=== PATIENT | female | born 1935 | race Caucasian/White ===

== ENCOUNTER 2018-08-20 17:41 | Inpatient (IN) ==
--- NOTE | 2018-08-20 18:02 | Emergency Department Note ---
SOB HPI - General Chief Complaint: Shortness of Breath/Dyspnea Stated Complaint: SOB for months Time Seen by Provider: 08/20/18 17:56 Source: patient Mode of arrival: wheelchair - History of Present Illness This patient has had increasing shortness of breath for the last 3 or 4 days but actually had some shortness of breath for about a month. She has no history of chronic lung or heart disease and has had a little edema of her lower extremities. She has a slight chronic cough but no history of COPD. - Related Data Home Medications Medication Instructions Recorded Confirmed apixaban 2.5 mg tablet 2.5 mg PO BID tab 06/13/18 08/20/18 losartan 50 mg tablet 50 mg PO QDAY 06/13/18 08/20/18 metoprolol succinate ER 50 mg 25 mg PO QDAY each 06/13/18 08/20/18 capsule sprinkle, ext. release 24 hr potassium chloride ER 20 mEq 20 meq PO BID 06/13/18 08/20/18 tablet,extended release Hydrochlorothiazide [Oretic] 25 mg PO DAILY 08/20/18 08/20/18 Memantine [Namenda] 10 mg PO BID 08/20/18 08/20/18 Allergies Allergy/AdvReac Type Severity Reaction Status Date / Time No Known Drug Allergies Allergy Unverified 08/20/18 17:49 Review of Systems All systems ED: reviewed and negative except as stated. Past Medical History - Past Medical History Medical history: Reports: CVA, hypertension - Social History smoking status: Never smoker Physical Exam Limitations: no limitations General appearance: alert Head: atraumatic Eye: Present: normal appearance ENT: normal exam Neck: Present: normal inspection Chest: Present: normal inspection Respiratory: Present: normal lung sounds bilaterally Cardiovascular: Present: tachycardia, irregular rhythm, normal heart sounds Abdominal: Present: soft. Absent: distention, tenderness Extremities: Present: pedal edema, pretibial edema Neurological: Present: alert Psychiatric: Present: normal affect Skin: Present: warm, dry Course Vital Signs Temperature 97.1 F 08/20/18 17:43 Pulse Rate 123 H 08/20/18 17:43 Respiratory Rate 20 08/20/18 17:43 Blood Pressure 136/83 08/20/18 17:43 Pulse Oximetry (%) 98 08/20/18 17:43 Temperature 97.1 F 08/20/18 17:43 Pulse Rate 106 H 08/20/18 19:16 Respiratory Rate 28 H 08/20/18 19:34 Blood Pressure 117/74 08/20/18 19:16 Pulse Oximetry (%) 92 08/20/18 19:16 Shortness of Breath/Dyspnea - [facility] Narrative Medical decision making narrative: Chest x-ray is consistent with mild heart failure BNP was 5000. It was negative. We gave her diltiazem and her rate came down to about 90. Also started Lasix at 20 mg IV. She will be admitted to the hospital by Dr. Dietrich. - Lab Data Lab results reviewed: Yes I reviewed the patient's lab results. Result diagrams: 08/20/18 18:05 08/20/18 18:05 Lab Results 08/20/18 08/20/18 08/20/18 Range/Units 18:05 18:05 18:05 WBC 7.3 (4.5-11.0) K/mcL RBC 4.21 (4.00-5.20) M/mcL Hgb 13.3 (12.0-15.0) g/dL Hct 41.6 (36.0-48.0) % MCV 99.0 (80.0-100.0) fL MCH 31.7 (26.0-34.0) pg MCHC 32.0 (31.0-36.0) g/dL RDW 17.7 H (11.5-14.5) % Plt Count 183 (140-440) K/mcL MPV 9.5 (7.4-10.4) fL Gran % 74.0 (38.0-78.0) % Lymph % (Auto) 15.4 L (15.5-49.0) % Lamb % (Auto) 9.2 (1.0-12.0) % Eos % (Auto) 1.1 (0.0-7.0) % Baso % (Auto) 0.3 (0.0-2.0) % Gran # 5.4 (1.8-8.0) K/mcL Lymph # (Auto) 1.1 L (1.5-4.8) K/mcL Lamb # (Auto) 0.7 (0.1-0.9) K/mcL Eos # (Auto) 0.1 (0.0-0.7) K/mcL Baso # (Auto) 0 (0.0-0.3) K/mcL Sodium 137 (133-145) mmol/L Potassium 3.6 (3.3-5.1) mmol/L Chloride 103 (96-108) mmol/L Carbon Dioxide 19 L (22-30) mmol/L Anion Gap 15.0 (8-16) BUN 20 (8-23) mg/dl Creatinine 1.2 H (0.6-1.1) mg/dl GFR Calculation 43 Glucose 134 H (70-105) mg/dL Calcium 8.6 (8.6-10.4) mg/dl Total Bilirubin 0.4 (0.0-1.0) mg/dL AST 19 (0-37) U/l ALT 24 (0-40) U/l Alkaline Phosphatase 98 (39-117) U/L Troponin T < 0.01 (0-0.03) ng/ml NT-Pro-B Natriuret Pep 5694.0 H (0-450) pg/ml Total Protein 7.3 (5.9-8.4) gm/dL Albumin 3.3 (3.2-5.2) gm/dL Globulin 4.0 H (2.2-3.7) gm/dL Albumin/Globulin Ratio 0.8 L (1.0-2.3) - Radiology Data Radiology results reviewed: Yes I reviewed the patient's radiology results. Disposition Pt seen by [facility]OL[facility]ACHINE/PA only: No Clinical Impression: Congestive heart failure, Atrial fibrillation Disposition: Xfer As Inpt ([facility]) Condition: Good Referrals: Seun Marsh DO [Primary Care Provider] - Time of Disposition: 19:41
[2018-08-20] MEDS ORDERED: DILTIAZEM 25 MG/5 ML VIAL IV ONE (18:18)
[2018-08-20] MEDS ORDERED: DILTIAZEM 125 MG in DEXTROSE 5% IN WATER 100 ML IV SCH (18:30)
[2018-08-20 18:50] LABS: Basophils # (Auto) 0 K/mcL (0.0-0.3); Basophils % (Auto) 0.3 % (0.0-2.0); Eosinophils # (Auto) 0.1 K/mcL (0.0-0.7); Eosinophils % (Auto) 1.1 % (0.0-7.0); Lymphocytes # (Auto) 1.1 K/mcL (1.5-4.8); Lymphocytes % (Auto) 15.4 % (15.5-49.0); Monocytes # (Auto) 0.7 K/mcL (0.1-0.9); Monocytes % (Auto) 9.2 % (1.0-12.0); Platelet Count 183 K/mcL (140-440); RBC 4.21 M/mcL (4.00-5.20); Red Cell Distribution Width 17.7 % (11.5-14.5)
[2018-08-20 19:11] LABS: ALT/SGPT 24 U/l (0-40); Albumin 3.3 gm/dL (3.2-5.2); Albumin/Globulin Ratio 0.8 (1.0-2.3); Alkaline Phosphatase 98 U/L (39-117); Blood Urea Nitrogen 20 mg/dl (8-23)
[2018-08-20] MEDS ORDERED: FUROSEMIDE 20 MG/2 ML VIAL IV ONE ×2 (19:32→21:21)
--- NOTE | 2018-08-20 19:42 | XRay Report ---
CLINICAL INFORMATION: sob COMPARISON: None. FINDINGS: The heart is mildly enlarged. Tortuous thoracic aorta is appreciated. Mediastinum is otherwise normal. The pulmonary vessels are mildly distended and there is minimal bronchovascular edema centrally. Small pleural effusions noted. There is minor bibasilar atelectasis. IMPRESSION: Mild CHF Interpreted and Authenticated by: Todd Holm 08/20/18
[2018-08-20] MEDS ORDERED: METOPROLOL TARTRATE 5 MG/5 ML VIAL IV ONE (20:28)
--- NOTE | 2018-08-20 20:56 | Internal Med History&Physical ---
Medical - H&P: [facility] Patient information: Note initiated : 08/20/18 at 8:53 pm Service Date, if different from initiated Date: [] Patient: Kimmie Pretty 82 y/o F admitted on for SOB for months. Chief Complaint: [] History of present illness: Ms. Pretty is a 82 year old F Presents to the ED with progressive shortness of breath, especially with any exertion. She states that she is bad noticeable shortness of breath over the past couple months but especially worse of the past 3 or 4 days. She is also noticed pedal edema more on the right foot the past few days as well. She has a mild chronic cough but no acute worsening. She has been sleeping in a recliner over the past week because of shortness of b reath, positive for orthopnea at night. When she gets up and exerts herself and gets short of breath she does get lightheaded. In the ED she was found to be in A. fib RVR with rates almost 130, she was given diltiazem which brought her heart rate down to the 90s. Chest x-ray revealed pulmonary edema. She had elevated BNP. Denies any chest pain, denies any recent illnesses. Denies any fevers or chills. Does not weigh herself daily. Review of Systems: Pertinent positives as above. Denies headache/fever/chills/nausea/vomiting/chest or abdominal pain/diarrhea. 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 release 24 hr potassium chloride ER 20 mEq 20 meq PO BID 06/13/18 08/20/18 History tablet,extended release Hydrochlorothiazide [Oretic] 25 mg PO DAILY 08/20/18 08/20/18 History Memantine [Namenda] 10 mg PO BID 08/20/18 08/20/18 History Allergies Allergy/AdvReac Type Severity Reaction Status Date / Time No Known Drug Allergies Allergy Unverified 08/20/18 17:49 Medical - H&P: Exam - Constitutional Vitals: Temp Pulse Resp BP Pulse Ox 97.1 F 98 H 21 115/88 95 08/20/18 17:43 08/20/18 20:10 08/20/18 20:10 08/20/18 20:10 08/20/18 20:10 Exam: General: Alert, Awake, No acute Distress Eyes/N/T: EOMI, PEERL, Head/Neck: neck supple, normocephalic atraumatic CV: RRR, No murmurs, normal s1/s2 Pulm: Clear b/l, no wheezing/rhonchi/rales Abd: soft, nontender, +BS x4 Ext: no clubbing/cyanosis, pedal edema more so on the right 2+ Neuro: Alert, no focal deficits, moves all extremities, CN 2-12 grossly intact, symmetrical strength b/l upper/lower, sensations intact b/l upper/lower Skin: warm/dry Medical - H&P: Reslt - Labs CBC & Chem 7: 08/20/18 18:05 08/20/18 18:05 Labs: Short CBC 08/20/18 Range/Units 18:05 WBC 7.3 (4.5-11.0) K/mcL Hgb 13.3 (12.0-15.0) g/dL Hct 41.6 (36.0-48.0) % Plt Count 183 (140-440) K/mcL BMP 08/20/18 18:05 Sodium 137 Potassium 3.6 Chloride 103 Carbon Dioxide 19 L BUN 20 Creatinine 1.2 H Glucose 134 H Calcium 8.6 Cardiac Enzymes 08/20/18 Range/Units 18:05 Troponin T < 0.01 (0-0.03) ng/ml Liver Function 08/20/18 Range/Units 18:05 Total Bilirubin 0.4 (0.0-1.0) mg/dL AST 19 (0-37) U/l ALT 24 (0-40) U/l Alkaline Phosphatase 98 (39-117) U/L Albumin 3.3 (3.2-5.2) gm/dL - Impressions Chest x-ray pulmonary edema Echocardiogram August 2017 showed an EF of 50% with some diastolic dysfunction Medical - H&P: A/P - Narrative A/P Narrative: A: *Afib RVR: -Is on Eliquis and metoprolol at home -trop neg *Acute on chronic diastolic CHF: *Pulmonary edema: *Dyspnea: Secondary to above *HTN: On losartan and metoprolol succinate at home, and hydrochlorothiazide *Dementia: Recently started on Namenda * P: -IV Lasix -Monitor weights and urine output -echo pending -Continue Eliquis and beta-elizabeth -Wean off diltiazem drip -Check magnesium level and TSH -Urinalysis pending - -f/u with cardio outpt -PT/OT -ppx: Eliquis
[2018-08-20 21:02] LABS: Appearance,Urine HAZY; Bacteria,Urine MANY /hpf (0); Bilirubin,Urine NEG (NEG); Color,Urine YELLOW; Glucose,Urine (UA) NEGATIVE (NEG); Leukocyte Esterase,Urine 500 /uL (NEG); Mucus,Urine FEW /hpf (0); Protein,Urine 30 mg/dL (NEG); Specific Gravity,Urine 1.017 (1.000-1.035); Urine Blood 0.03 mg/dL (<0.03); Urine Hyaline Cast 8 /lpf (0-2); Urine RBC 3 /hpf (0-1); Urine Squamous Epithelial Cell 1 /hpf (0-4); Urine WBC > 182 /hpf (0-4); Urobilinogen,Urine NEG (NEG)
[2018-08-20] MEDS ORDERED: POTASSIUM CHLORIDE 40 MEQ in DEXTROSE 5% IN WATER 500 ML IV PRN (21:21)
[2018-08-20] MEDS ORDERED: POTASSIUM CHLORIDE 20 MEQ TABLET PO PRN ×2 (21:21)
[2018-08-20] MEDS ORDERED: MAGNESIUM SULFATE 2 GM/50 ML BAG IV PRN (21:21)
[2018-08-20] MEDS ORDERED: POLYETHYLENE GLYCOL 3350 17 GM PACKET PO PRN (21:21)
[2018-08-20] MEDS ORDERED: ONDANSETRON 4 MG/2 ML VIAL IV PRN (21:21)
[2018-08-20] MEDS ORDERED: SENNOSIDES 1 TABLET PO PRN (21:21)
[2018-08-20] MEDS: POTASSIUM CHLORIDE 20 MEQ TABLET PO SCH ×2 (22:13→22:15)
[2018-08-20] MEDS: FAMOTIDINE 20 MG TABLET PO SCH (22:13)
[2018-08-20] MEDS: APIXABAN 2.5 MG TABLET PO SCH (22:14)
[2018-08-20] MEDS: cefTRIAXone 1 GM VIAL IV SCH (22:14)
[2018-08-20] MEDS: DOCUSATE SODIUM 100 MG CAPSULE PO SCH (22:14)
[2018-08-20] MEDS: 0.9 % SODIUM CHLORIDE 10 ML SYRINGE IV SCH (22:14)
[2018-08-20] MEDS: MEMANTINE 10 MG TABLET PO SCH (22:14)
[2018-08-21] MEDS: 0.9 % SODIUM CHLORIDE 10 ML SYRINGE IV SCH ×6 (05:24→20:50)
[2018-08-21] MEDS: IPRATROPIUM/ALBUTEROL 3 ML AMPUL.NEB NEB PRN (05:52)
[2018-08-21 06:15] LABS: Basophils # (Auto) 0 K/mcL (0.0-0.3); Basophils % (Auto) 0.2 % (0.0-2.0); Eosinophils # (Auto) 0 K/mcL (0.0-0.7); Eosinophils % (Auto) 0.5 % (0.0-7.0); Granulocytes % (Auto) 77.4 % (38.0-78.0); Lymphocytes % (Auto) 14.1 % (15.5-49.0); Mean Cell Volume 99.8 fL (80.0-100.0); Mean Corpuscular HGB Conc 31.5 g/dL (31.0-36.0); Monocytes # (Auto) 0.6 K/mcL (0.1-0.9); Monocytes % (Auto) 7.8 % (1.0-12.0); Platelet Count 179 K/mcL (140-440); RBC 4.15 M/mcL (4.00-5.20); Red Cell Distribution Width 17.7 % (11.5-14.5)
[2018-08-21 06:30] LABS: ALT/SGPT 23 U/l (0-40); Albumin/Globulin Ratio 0.7 (1.0-2.3); Alkaline Phosphatase 99 U/L (39-117); Bilirubin,Direct < 0.2 mg/dL (0.0-0.3); Blood Urea Nitrogen 22 mg/dl (8-23); Gamma Glutamyl Transpeptidase 74 U/L (5-36); Uric Acid 8.3 mg/dL (2.5-8.0)
--- NOTE | 2018-08-21 07:14 | Internal Med Progress Note ---
Medical - PN: Subj Patient information: Note initiated : 08/21/18 at 7:13 am Service Date, if different from initiated Date: [] Patient: Kimmie Pretty 82 y/o F admitted on 08/20/18 for SOB for months. Chief Complaint: [] Interval history: Ms. Pretty is a 82 year old F Presents to the ED with progressive shortness of breath, especially with any exertion. She states that she is bad noticeable shortness of breath over the past couple months but especially worse of the past 3 or 4 days. She is also noticed pedal edema more on the right foot the past few days as well. She has a mild chronic cough but no acute worsening. She has been sleeping in a recliner over the past week because of shortness of breath, positive for orthopnea at night. When she gets up and exerts herself and gets short of breath she does get lightheaded. In the ED she was found to be in A. fib RVR with rates almost 130, she was given diltiazem which brought her heart rate down to the 90s. Chest x-ray revealed pulmonary edema. She had elevated BNP. Denies any chest pain, denies any recent illnesses. Denies any fevers or chills. Does not weigh herself daily. 08/21 Was able to get decent sleep last night. Good urine output overnight. She feels her shortness of breath is improving. Diltiazem drip at 5. She is taken off of supplemental oxygen this morning. Occasional cough. Review of Systems: denies headache/fever/chills/nausea/vomiting/chest or abdominal pain/diarrhea. Otherwise see above. - Constitutional Vitals: Vital Signs Temp Pulse Resp BP Pulse Ox 98.0 F 92 H 21 134/101 97 08/21/18 07:02 08/21/18 06:31 08/21/18 07:02 08/21/18 07:02 08/21/18 07:02 Period Temp Pulse Resp BP Sys/Stuart Pulse Ox Last 24 Hr 97.1 F-98.4 F 78-150 14-34 106-149/65-107 90-99 Intake and Output 08/20/18 08/21/18 08/21/18 21:59 05:59 13:59 Intake Total 12 0 Output Total 950 980 100 Balance -938 -980 -100 Weight 71.985 kg Intake & Output: Intake & Output 08/20/18 08/21/18 08/21/18 21:59 05:59 13:59 Intake Total 12 0 Output Total 950 980 100 Balance -938 -980 -100 Weight 71.985 kg Intake: IV 12 0 Cardizem 125 mg In Dextrose 5% 12 in Water 100 ml @ 5 MG/HR 5 mls /hr IV Q12H [facility] Rx#:[id number] Output: Urine Catheter Amount 950 980 100 Other: Urine Appearance Clear Clear Clear Uretheral (Fuentes) Clear Urine Color Bright Yellow Bright Yellow Bright Yellow Uretheral (Fuentes) Pale Exam: General: Alert, Awake, No acute Distress Eyes/N/T: EOMI, Head/Neck: neck supple, CV: RRR, No murmurs, Pulm: Clear b/l, no wheezing/rhonchi/rales Abd: soft, nontender, +BS x4 Ext: no clubbing/cyanosis, pedal edema more so on the right 1-2+ Neuro: Alert, no focal deficits, moves all extremities, Skin: warm/dry Medical - PN: Obj Da - Labs CBC & Chem 7: 08/21/18 03:55 08/21/18 03:55 Labs: Abnormal Lab Results 08/21/18 08/21/18 08/20/18 03:55 03:55 20:10 RDW 17.7 H Lymph % (Auto) 14.1 L Lymph # (Auto) 1.0 L Carbon Dioxide Creatinine 1.4 H Glucose 134 H Uric Acid 8.3 H GGT 74 H Lactate Dehydrogenase 255 H NT-Pro-B Natriuret Pep Albumin 3.0 L Globulin 4.3 H Albumin/Globulin Ratio 0.7 L TSH Urine Protein 30 A Urine Occult Blood 0.03 A Urine Nitrate Pos A Ur Leukocyte Esterase 500 A Urine RBC 3 H Urine WBC > 182 H Urine Bacteria Many A Hyaline Casts 8 H 08/20/18 08/20/18 08/20/18 18:15 18:05 18:05 RDW 17.7 H Lymph % (Auto) 15.4 L Lymph # (Auto) 1.1 L Carbon Dioxide 19 L Creatinine 1.2 H Glucose 134 H Uric Acid GGT Lactate Dehydrogenase NT-Pro-B Natriuret Pep 5694.0 H Albumin Globulin 4.0 H Albumin/Globulin Ratio 0.8 L TSH 5.33 H Urine Protein Urine Occult Blood Urine Nitrate Ur Leukocyte Esterase Urine RBC Urine WBC Urine Bacteria Hyaline Casts Meds: Medications Acetaminophen (Tylenol) 650 mg PO Q6HP PRN PRN Reason: PAIN/FEVER > 101 Albuterol/Ipratropium (Duoneb) 3 ml NEB Q4HP PRN PRN Reason: Shortness Of Breath Last Admin: 08/21/18 05:52 Dose: 3 ml Documented by: Apixaban (Eliquis) 2.5 mg PO BID [facility] Last Admin: 08/20/18 22:14 Dose: 2.5 mg Documented by: Ceftriaxone Sodium (Rocephin) 1 gm IV DAILY [facility]; Protocol Last Admin: 08/20/18 22:14 Dose: 1 gm Documented by: Docusate Sodium (Colace) 100 mg PO BID [facility] Last Admin: 08/20/18 22:14 Dose: 100 mg Documented by: Famotidine (Pepcid) 20 mg PO HS [facility] Last Admin: 08/20/18 22:13 Dose: 20 mg Documented by: Furosemide (Lasix) 40 mg IV DAILY [facility] Stop: 08/21/18 09:01 Hydrochlorothiazide (Oretic) 25 mg PO DAILY [facility] Diltiazem HCl 125 mg/ Dextrose 125 mls @ 5 mls/hr IV Q12H [facility]; Protocol Potassium Chloride 40 meq/ (Dextrose) 520 mls @ 130 mls/hr IV UD PRN PRN Reason: Potassium < 3 Magnesium Sulfate (Magnesium Sulfate) 2 gm in 50 mls @ 50 mls/hr IV UD PRN PRN Reason: Magnesium </= 1.6 Memantine (Namenda) 10 mg PO BID [facility] Last Admin: 08/20/18 22:14 Dose: 10 mg Documented by: Metoprolol Succinate (Toprol Xl) 25 mg PO DAILY [facility] Metoprolol Tartrate (Lopressor) 5 mg IV Q2HP PRN PRN Reason: Tachyarrhythmias HR>110 Ondansetron HCl (Zofran) 4 mg IV Q4HP PRN PRN Reason: Nausea And Vomiting Polyethylene Glycol (Miralax) 17 gm PO DAILYP PRN PRN Reason: Constipation [facility] Last Admin: 08/20/18 22:15 Dose: Not Given Documented by: Potassium Chloride (Kdur) 40 meq PO UD PRN PRN Reason: Potssium is 3-3.5 Potassium Chloride (Kdur) 40 meq PO UD PRN PRN Reason: Potassium < 3 Senna (Senokot) 2 tab PO HSP PRN PRN Reason: Constipation Sodium Chloride (Saline Flush) 10 ml IV Q8 [facility] Last Admin: 08/21/18 05:24 Dose: 10 ml Documented by: Medical - PN: A/P - Time Spent With Patient Total time spent is greater than 50% in coordination of care (as documented) at patient's floor/unit and/or counseling patient: - Narrative A/P Narrative: A: *Afib RVR: -Is on Eliquis and metoprolol at home -trop neg *Acute on chronic diastolic CHF: -Good urine output overnight. *Pulmonary edema w/hypoxia: -on room air this morning *Dyspnea: Secondary to above *HTN: On losartan and metoprolol succinate at home, and hydrochlorothiazide *Dementia: Recently started on Namenda *UTI: P: -IV Lasix to PO -Monitor weights and urine output -echo pending -Continue Eliquis and beta-elizabeth -Wean off diltiazem drip -rocephin, pending UC - -f/u with cardio outpt -PT/OT -ppx: Eliquis Medical - PN: Qual - VTE Deep Vein Thrombosis/Pulmonary Embolism Present on Admission: No
[2018-08-21] MEDS: METOPROLOL TARTRATE 5 MG/5 ML VIAL IV PRN ×2 (07:36→16:55)
[2018-08-21] MEDS: FUROSEMIDE 40 MG TABLET PO SCH (08:19)
[2018-08-21] MEDS: HYDROCHLOROTHIAZIDE 25 MG TABLET PO SCH (08:23)
[2018-08-21] MEDS: POTASSIUM CHLORIDE 20 MEQ TABLET PO SCH ×2 (08:23→16:56)
[2018-08-21] MEDS: DOCUSATE SODIUM 100 MG CAPSULE PO SCH ×2 (08:24→20:49)
[2018-08-21] MEDS: APIXABAN 2.5 MG TABLET PO SCH ×2 (08:28→20:49)
[2018-08-21] MEDS: MEMANTINE 10 MG TABLET PO SCH ×2 (08:28→20:49)
[2018-08-21] MEDS ORDERED: FUROSEMIDE 40 MG/4 ML VIAL IV SCH (09:00)
[2018-08-21] MEDS ORDERED: METOPROLOL SUCCINATE 25 MG TAB.XL.24H PO SCH (09:00)
[2018-08-21] MEDS: DILTIAZEM 125 MG in DEXTROSE 5% IN WATER 100 ML IV SCH ×2 (10:46→19:39)
[2018-08-21] MEDS: ACETAMINOPHEN 325 MG TABLET PO PRN ×2 (11:50→16:58)
[2018-08-21] MEDS: cefTRIAXone 1 GM VIAL IV SCH (14:37)
[2018-08-21] MEDS ORDERED: METOPROLOL SUCCINATE 25 MG TAB.XL.24H PO ONE (18:33)
[2018-08-21] MEDS ORDERED: 0.9 % SODIUM CHLORIDE 1,000 ML IV SCH (20:00)
[2018-08-21] MEDS: FAMOTIDINE 20 MG TABLET PO SCH (20:49)
[2018-08-22] MEDS: METOPROLOL TARTRATE 5 MG/5 ML VIAL IV PRN ×3 (02:05→23:14)
[2018-08-22] MEDS: ACETAMINOPHEN 325 MG TABLET PO PRN ×2 (04:21→19:55)
[2018-08-22 05:48] LABS: Blood Urea Nitrogen 28 mg/dl (8-23)
[2018-08-22] MEDS: 0.9 % SODIUM CHLORIDE 10 ML SYRINGE IV SCH ×3 (05:55→23:39)
--- NOTE | 2018-08-22 06:25 | XRay Report ---
CLINICAL INFORMATION: f/u chf COMPARISON: 08/20/2018 FINDINGS: Moderate cardiomegaly is unchanged. Mediastinum is unremarkable. Pulmonary vessels have returned to normal in caliber. There is no edema. Left basilar atelectasis has resolved. Small vague infiltrate or atelectasis is developing in the right base. No effusions IMPRESSION: Interval resolution CHF. Possible developing right basilar infiltrate Interpreted and Authenticated by: Todd Holm 08/22/18
[2018-08-22] MEDS: DILTIAZEM 125 MG in DEXTROSE 5% IN WATER 100 ML IV SCH (07:03)
[2018-08-22] MEDS: DOCUSATE SODIUM 100 MG CAPSULE PO SCH ×2 (08:01→20:23)
[2018-08-22] MEDS: MEMANTINE 10 MG TABLET PO SCH ×2 (08:01→20:23)
[2018-08-22] MEDS: FUROSEMIDE 40 MG TABLET PO SCH (08:01)
[2018-08-22] MEDS: APIXABAN 2.5 MG TABLET PO SCH ×2 (08:01→20:23)
[2018-08-22] MEDS: cefTRIAXone 1 GM VIAL IV SCH (08:01)
[2018-08-22] MEDS: HYDROCHLOROTHIAZIDE 25 MG TABLET PO SCH (08:01)
[2018-08-22] MEDS: POTASSIUM CHLORIDE 20 MEQ TABLET PO SCH ×2 (08:01→18:21)
[2018-08-22] MEDS: METOPROLOL SUCCINATE 50 MG TAB.XL.24H PO SCH (08:01)
--- NOTE | 2018-08-22 08:43 | XRay Report ---
CLINICAL INFORMATION: r/o CHF COMPARISON: 08/22/2018 FINDINGS: Moderate cardiomegaly is unchanged. Mediastinum and pulmonary vessels are normal. Moderate patchy bibasilar infiltrates or subsegmental atelectasis have progressed. Small left pleural effusion noted IMPRESSION: No CHF. Moderate stable cardiomegaly. Moderate patchy bibasilar atelectasis or infiltrates - progressing. Consider aspiration Interpreted and Authenticated by: Todd Holm 08/22/18
[2018-08-22] MEDS ORDERED: DILTIAZEM 125 MG in DEXTROSE 5% IN WATER 100 ML IV PRN (09:15)
--- NOTE | 2018-08-22 10:05 | Internal Med Progress Note ---
Medical - PN: Subj Patient information: Note initiated : 08/22/18 at 10:02 am Service Date, if different from initiated Date: [] Patient: Kimmie Pretty 82 y/o F admitted on 08/20/18 for SOB for months. Chief Complaint: [] Interval history: Ms. Pretty is a 82 year old F Presents to the ED with progressive shortness of breath, especially with any exertion. She states that she is bad noticeable shortness of breath over the past couple months but especially worse of the past 3 or 4 days. She is also noticed pedal edema more on the right foot the past few days as well. She has a mild chronic cough but no acute worsening. She has been sleeping in a recliner over the past week because of shortness of breath, positive for orthopnea at night. When she gets up and exerts herself and gets short of breath she does get lightheaded. In the ED she was found to be in A. fib RVR with rates almost 130, she was given diltiazem which brought her heart rate down to the 90s. Chest x-ray revealed pulmonary edema. She had elevated BNP. Denies any chest pain, denies any recent illnesses. Denies any fevers or chills. Does not weigh herself daily. 08/21 Was able to get decent sleep last night. Good urine output overnight. She feels her shortness of breath is improving. Diltiazem drip at 5. She is taken off of supplemental oxygen this morning. Occasional cough. /9-patient feeling more short of breath. No concerns per staff with heart rate variable between 80-120. Off diltiazem drip. Echocardiogram EF 25%. Case discussed with patient's son and patient and the need for follow-up with cardi ology. Increase metoprolol to 50 extended release. X-ray chest shows interval resolution of CHF however bibasilar atelectasis/infiltrates likely aspiration. Start ST eval - Constitutional Vitals: Vital Signs Temp Pulse Resp BP Pulse Ox 97.9 F 129 H 27 H 106/82 92 08/22/18 04:01 08/22/18 09:01 08/22/18 09:01 08/22/18 09:01 08/22/18 09:01 Period Temp Pulse Resp BP Sys/Stuart Pulse Ox Last 24 Hr 97.1 F-98.3 F 33-129 0-35 101-143/70-119 78-97 Intake and Output 08/21/18 08/22/18 08/22/18 21:59 05:59 13:59 Intake Total 720 720 570 Output Total 275 296 95 Balance 445 424 475 Weight 160 lb 11.2 oz Intake & Output: Intake & Output 08/21/18 08/22/18 08/22/18 21:59 05:59 13:59 Intake Total 720 720 570 Output Total 275 296 95 Balance 445 424 475 Weight 160 lb 11.2 oz Intake: Oral 720 720 570 Output: Urine Catheter Amount 275 296 95 Other: Meal Dinner Breakfast Percent of Meal Consumed 75% 25% Feeding Ability Total Assistance Urine Appearance Clear Clear Clear Uretheral (Fuentes) Clear Clear Urine Color Straw Straw Dark Yellow Uretheral (Ufentes) Dark Yellow Urine Odor Normal # Bowel Movements 1 Medical - PN: Obj Da - Labs CBC & Chem 7: 08/21/18 03:55 08/22/18 03:44 Labs: Abnormal Lab Results 08/22/18 08/21/18 08/21/18 03:44 03:55 03:55 RDW 17.7 H Lymph % (Auto) 14.1 L Lymph # (Auto) 1.0 L Carbon Dioxide 19 L BUN 28 H Creatinine 1.5 H 1.4 H Glucose 124 H 134 H Uric Acid 8.3 H Calcium 8.4 L GGT 74 H Lactate Dehydrogenase 255 H NT-Pro-B Natriuret Pep Albumin 3.0 L Globulin 4.3 H Albumin/Globulin Ratio 0.7 L TSH Urine Protein Urine Occult Blood Urine Nitrate Ur Leukocyte Esterase Urine RBC Urine WBC Urine Bacteria Hyaline Casts 08/20/18 08/20/18 08/20/18 20:10 18:15 18:05 RDW Lymph % (Auto) Lymph # (Auto) Carbon Dioxide 19 L BUN Creatinine 1.2 H Glucose 134 H Uric Acid Calcium GGT Lactate Dehydrogenase NT-Pro-B Natriuret Pep 5694.0 H Albumin Globulin 4.0 H Albumin/Globulin Ratio 0.8 L TSH 5.33 H Urine Protein 30 A Urine Occult Blood 0.03 A Urine Nitrate Pos A Ur Leukocyte Esterase 500 A Urine RBC 3 H Urine WBC > 182 H Urine Bacteria Many A Hyaline Casts 8 H 08/20/18 18:05 RDW 17.7 H Lymph % (Auto) 15.4 L Lymph # (Auto) 1.1 L Carbon Dioxide BUN Creatinine Glucose Uric Acid Calcium GGT Lactate Dehydrogenase NT-Pro-B Natriuret Pep Albumin Globulin Albumin/Globulin Ratio TSH Urine Protein Urine Occult Blood Urine Nitrate Ur Leukocyte Esterase Urine RBC Urine WBC Urine Bacteria Hyaline Casts Meds: Medications Acetaminophen (Tylenol) 650 mg PO Q6HP PRN PRN Reason: PAIN/FEVER > 101 Last Admin: 08/22/18 04:21 Dose: 650 mg Documented by: Albuterol/Ipratropium (Duoneb) 3 ml NEB Q4HP PRN PRN Reason: Shortness Of Breath Last Admin: 08/21/18 05:52 Dose: 3 ml Documented by: Apixaban (Eliquis) 2.5 mg PO BID [facility] Last Admin: 08/22/18 08:01 Dose: 2.5 mg Documented by: Ceftriaxone Sodium (Rocephin) 1 gm IV DAILY [facility]; Protocol Last Admin: 08/22/18 08:01 Dose: 1 gm Documented by: Docusate Sodium (Colace) 100 mg PO BID [facility] Last Admin: 08/22/18 08:01 Dose: 100 mg Documented by: Famotidine (Pepcid) 20 mg PO HS [facility] Last Admin: 08/21/18 20:49 Dose: 20 mg Documented by: Furosemide (Lasix) 40 mg PO DAILY [facility] Last Admin: 08/22/18 08:01 Dose: 40 mg Documented by: Hydrochlorothiazide (Oretic) 25 mg PO DAILY [facility] Last Admin: 08/22/18 08:01 Dose: 25 mg Documented by: Potassium Chloride 40 meq/ (Dextrose) 520 mls @ 130 mls/hr IV UD PRN PRN Reason: Potassium < 3 Magnesium Sulfate (Magnesium Sulfate) 2 gm in 50 mls @ 50 mls/hr IV UD PRN PRN Reason: Magnesium </= 1.6 Sodium Chloride (Sodium Chloride 0.9%) 1,000 mls @ 50 mls/hr IV .Q20H [facility] Stop: 08/22/18 15:59 Last Admin: 08/21/18 20:00 Dose: 50 mls/hr Documented by: Diltiazem HCl 125 mg/ Dextrose 125 mls @ 5 mls/hr IV Q12HP PRN; Protocol PRN Reason: Tachyarrhythmias Memantine (Namenda) 10 mg PO BID [facility] Last Admin: 08/22/18 08:01 Dose: 10 mg Documented by: Metoprolol Succinate (Toprol Xl) 50 mg PO DAILY [facility] Last Admin: 08/22/18 08:01 Dose: 50 mg Documented by: Metoprolol Tartrate (Lopressor) 5 mg IV Q2HP PRN PRN Reason: Tachyarrhythmias HR>110 Last Admin: 08/22/18 04:20 Dose: 5 mg Documented by: Ondansetron HCl (Zofran) 4 mg IV Q4HP PRN PRN Reason: Nausea And Vomiting Polyethylene Glycol (Miralax) 17 gm PO DAILYP PRN PRN Reason: Constipation Potassium Chloride (Kdur) 20 meq PO BIDCC [facility] Last Admin: 08/22/18 08:01 Dose: 20 meq Documented by: Potassium Chloride (Kdur) 40 meq PO UD PRN PRN Reason: Potssium is 3-3.5 Potassium Chloride (Kdur) 40 meq PO UD PRN PRN Reason: Potassium < 3 Senna (Senokot) 2 tab PO HSP PRN PRN Reason: Constipation Sodium Chloride (Saline Flush) 10 ml IV Q8 [facility] Last Admin: 08/22/18 05:55 Dose: 10 ml Documented by: Medical - PN: A/P - Time Spent With Patient Total time spent is greater than 50% in coordination of care (as documented) at patient's floor/unit and/or counseling patient: 25 - 35 minutes (1) Acute decompensated heart failure Status: Acute Assessment and plan: * Acute decompensated heart failure systolic with EF 25%-clinically improving. Improved pulmonary edema * A. fib with RVR-clinically improved off diltiazem drip. Continue metoprolol at higher doses * Aspiration pneumonia-ST eval/aspiration precaution. No indication for antibiotics at this time * Hypoxic respiratory failure secondary to combination of above-clinically improved * History of dementia on memantine * Anticoagulation on Apixiban * UTI on Rocephin, await cultures * Full code Plan * ST eval/aspiration precautions * Continue rate control measures * Antibiotic coverage * PT OT * Possible discharge in 24-48 hours if clinically improved Current Visit: Yes Medical - PN: Qual - VTE Deep Vein Thrombosis/Pulmonary Embolism Present on Admission: No
[2018-08-22] MEDS: FAMOTIDINE 20 MG TABLET PO SCH (20:23)
[2018-08-23] MEDS: IPRATROPIUM/ALBUTEROL 3 ML AMPUL.NEB NEB PRN (01:20)
[2018-08-23] MEDS: METOPROLOL TARTRATE 5 MG/5 ML VIAL IV PRN ×3 (02:24→20:18)
[2018-08-23] MEDS: 0.9 % SODIUM CHLORIDE 10 ML SYRINGE IV SCH ×3 (05:28→20:18)
[2018-08-23] MEDS: FUROSEMIDE 40 MG TABLET PO SCH (08:21)
[2018-08-23] MEDS: METOPROLOL SUCCINATE 50 MG TAB.XL.24H PO SCH (08:21)
[2018-08-23] MEDS: HYDROCHLOROTHIAZIDE 25 MG TABLET PO SCH (08:21)
[2018-08-23] MEDS: APIXABAN 2.5 MG TABLET PO SCH ×2 (08:21→20:18)
[2018-08-23] MEDS: cefTRIAXone 1 GM VIAL IV SCH (08:21)
[2018-08-23] MEDS: MEMANTINE 10 MG TABLET PO SCH ×2 (08:21→20:18)
[2018-08-23] MEDS: POTASSIUM CHLORIDE 20 MEQ TABLET PO SCH ×2 (08:21→18:01)
[2018-08-23] MEDS: DOCUSATE SODIUM 100 MG CAPSULE PO SCH ×2 (08:21→20:18)
--- NOTE | 2018-08-23 10:19 | Internal Med Progress Note ---
Medical - PN: Subj Patient information: Note initiated : 08/23/18 at 10:16 am Service Date, if different from initiated Date: [] Patient: Kimmie Pretty 82 y/o F admitted on 08/20/18 for SOB for months. Chief Complaint: [] Interval history: Ms. Pretty is a 82 year old F Presents to the ED with progressive shortness of breath, especially with any exertion. She states that she is bad noticeable shortness of breath over the past couple months but especially worse of the past 3 or 4 days. She is also noticed pedal edema more on the right foot the past few days as well. She has a mild chronic cough but no acute worsening. She has been sleeping in a recliner over the past week because of shortness of breath, positive for orthopnea at night. When she gets up and exerts herself and gets short of breath she does get lightheaded. In the ED she was found to be in A. fib RVR with rates almost 130, she was given diltiazem which brought her heart rate down to the 90s. Chest x-ray revealed pulmonary edema. She had elevated BNP. Denies any chest pain, denies any recent illnesses. Denies any fevers or chills. Does not weigh herself daily. 08/21 Was able to get decent sleep last night. Good urine output overnight. She feels her shortness of breath is improving. Diltiazem drip at 5. She is taken off of supplemental oxygen this morning. Occasional cough. 08/22-patient feeling more short of breath. No concerns per staff with heart rate variable between 80-120. Off diltiazem drip. Echocardiogram EF 25%. Case discussed with patient's son and patient and the need for follow-up with card iology. Increase metoprolol to 50 extended release. X-ray chest shows interval resolution of CHF however bibasilar atelectasis/infiltrates likely aspiration. Start ST eval 08/23- patient seen in room along with son. No overnight events. Worsening chest infiltrates. Patient was to return home. Family considering option of palliation/comfort measures in light of poor quality of life. Family will decide in the next 24 hours. Plan will be to go home as per patient's wishes on oral antibiotics. Has remained afebrile. No other concerns expressed the nursing staff - Constitutional Vitals: Vital Signs Temp Pulse Resp BP Pulse Ox 98.8 F 108 H 20 112/82 91 08/23/18 08:01 08/23/18 08:01 08/23/18 08:01 08/23/18 08:01 08/23/18 08:01 Period Temp Pulse Resp BP Sys/Stuart Pulse Ox Last 24 Hr 97.2 F-99.7 F 52-113 11-34 106-139/74-93 76-97 Intake and Output 08/22/18 08/23/18 08/23/18 21:59 05:59 13:59 Intake Total 120 340 300 Output Total 660 328 120 Balance -540 12 180 Weight 160 lb 8 oz Intake & Output: Intake & Output 08/22/18 08/23/18 08/23/18 21:59 05:59 13:59 Intake Total 120 340 300 Output Total 660 328 120 Balance -540 12 180 Weight 160 lb 8 oz Intake: Oral 120 340 300 Output: Urine Catheter Amount 540 328 120 Emesis 120 Other: Meal Dinner Breakfast Percent of Meal Consumed 50% 25% Feeding Ability Assist with Tray Set Up Urine Appearance Cloudy Urine Color Pale Dark Yellow Uretheral (Fuentes) Bright Yellow Dark Yellow Stool Size Moderate Stool Color Brown Stool Consistency Liquid # Bowel Movements 1 # of times incontinent of 1 Bowels General appearance: no acute distress Exam: Resting comfortably Nonlabored breathing Atrial fibrillation variable rate between 80-120 Nondistended abdomen No lymphedema Medical - PN: Obj Da - Labs CBC & Chem 7: 08/21/18 03:55 08/22/18 03:44 Labs: Abnormal Lab Results 08/22/18 08/21/18 08/21/18 03:44 03:55 03:55 RDW 17.7 H Lymph % (Auto) 14.1 L Lymph # (Auto) 1.0 L Carbon Dioxide 19 L BUN 28 H Creatinine 1.5 H 1.4 H Glucose 124 H 134 H Uric Acid 8.3 H Calcium 8.4 L GGT 74 H Lactate Dehydrogenase 255 H NT-Pro-B Natriuret Pep Albumin 3.0 L Globulin 4.3 H Albumin/Globulin Ratio 0.7 L TSH Urine Protein Urine Occult Blood Urine Nitrate Ur Leukocyte Esterase Urine RBC Urine WBC Urine Bacteria Hyaline Casts 08/20/18 08/20/18 08/20/18 20:10 18:15 18:05 RDW Lymph % (Auto) Lymph # (Auto) Carbon Dioxide 19 L BUN Creatinine 1.2 H Glucose 134 H Uric Acid Calcium GGT Lactate Dehydrogenase NT-Pro-B Natriuret Pep 5694.0 H Albumin Globulin 4.0 H Albumin/Globulin Ratio 0.8 L TSH 5.33 H Urine Protein 30 A Urine Occult Blood 0.03 A Urine Nitrate Pos A Ur Leukocyte Esterase 500 A Urine RBC 3 H Urine WBC > 182 H Urine Bacteria Many A Hyaline Casts 8 H 08/20/18 18:05 RDW 17.7 H Lymph % (Auto) 15.4 L Lymph # (Auto) 1.1 L Carbon Dioxide BUN Creatinine Glucose Uric Acid Calcium GGT Lactate Dehydrogenase NT-Pro-B Natriuret Pep Albumin Globulin Albumin/Globulin Ratio TSH Urine Protein Urine Occult Blood Urine Nitrate Ur Leukocyte Esterase Urine RBC Urine WBC Urine Bacteria Hyaline Casts Meds: Medications Acetaminophen (Tylenol) 650 mg PO Q6HP PRN PRN Reason: PAIN/FEVER > 101 Last Admin: 08/22/18 19:55 Dose: 650 mg Documented by: Albuterol/Ipratropium (Duoneb) 3 ml NEB Q4HP PRN PRN Reason: Shortness Of Breath Last Admin: 08/23/18 01:20 Dose: 3 ml Documented by: Apixaban (Eliquis) 2.5 mg PO BID [facility] Last Admin: 08/23/18 08:21 Dose: 2.5 mg Documented by: Ceftriaxone Sodium (Rocephin) 1 gm IV DAILY [facility]; Protocol Last Admin: 08/23/18 08:21 Dose: 1 gm Documented by: Docusate Sodium (Colace) 100 mg PO BID [facility] Last Admin: 08/23/18 08:21 Dose: 100 mg Documented by: Famotidine (Pepcid) 20 mg PO HS [facility] Last Admin: 08/22/18 20:23 Dose: 20 mg Documented by: Furosemide (Lasix) 40 mg PO DAILY [facility] Last Admin: 08/23/18 08:21 Dose: 40 mg Documented by: Hydrochlorothiazide (Oretic) 25 mg PO DAILY [facility] Last Admin: 08/23/18 08:21 Dose: 25 mg Documented by: Potassium Chloride 40 meq/ (Dextrose) 520 mls @ 130 mls/hr IV UD PRN PRN Reason: Potassium < 3 Magnesium Sulfate (Magnesium Sulfate) 2 gm in 50 mls @ 50 mls/hr IV UD PRN PRN Reason: Magnesium </= 1.6 Diltiazem HCl 125 mg/ Dextrose 125 mls @ 5 mls/hr IV Q12HP PRN; Protocol PRN Reason: Tachyarrhythmias Memantine (Namenda) 10 mg PO BID [facility] Last Admin: 08/23/18 08:21 Dose: 10 mg Documented by: Metoprolol Succinate (Toprol Xl) 50 mg PO DAILY [facility] Last Admin: 08/23/18 08:21 Dose: 50 mg Documented by: Metoprolol Tartrate (Lopressor) 5 mg IV Q2HP PRN PRN Reason: Tachyarrhythmias HR>110 Last Admin: 08/23/18 02:24 Dose: 5 mg Documented by: Ondansetron HCl (Zofran) 4 mg IV Q4HP PRN PRN Reason: Nausea And Vomiting Polyethylene Glycol (Miralax) 17 gm PO DAILYP PRN PRN Reason: Constipation Potassium Chloride (Kdur) 20 meq PO BIDCC [facility] Last Admin: 08/23/18 08:21 Dose: 20 meq Documented by: Potassium Chloride (Kdur) 40 meq PO UD PRN PRN Reason: Potssium is 3-3.5 Potassium Chloride (Kdur) 40 meq PO UD PRN PRN Reason: Potassium < 3 Senna (Senokot) 2 tab PO HSP PRN PRN Reason: Constipation Sodium Chloride (Saline Flush) 10 ml IV Q8 [facility] Last Admin: 08/23/18 05:28 Dose: 10 ml Documented by: Medical - PN: A/P - Time Spent With Patient Total time spent is greater than 50% in coordination of care (as documented) at patient's floor/unit and/or counseling patient: 25 - 35 minutes (1) Acute decompensated heart failure Status: Acute Assessment and plan: * Acute decompensated heart failure systolic with EF 25%-clinically improving with diuresis however creatinine uptrending from 1.2-1.5. Improved pulmonary edema * A. fib with RVR-clinically improved off diltiazem drip. Continue metoprolol at higher doses * Aspiration pneumonia-continue ST eval/aspiration precaution. White count within normal limits. No indication for antibiotics at this time * Hypoxic respiratory failure secondary to combination of above-clinically improved * Acute gram-negative taco cystitis UTI on Rocephin * History of dementia on memantine * Anticoagulation on Apixiban * Full code Plan * Continue aspiration precautions/diet per ST recommendations * Continue rate control measures * Downgraded to telemetry * Antibiotic coverage and de-escalate based on sensitivities * PT OT * Anticipate discharge in 24 hours on oral antibiotics home. Await family recommendations on goals of care Current Visit: Yes Medical - PN: Qual - VTE Deep Vein Thrombosis/Pulmonary Embolism Present on Admission: No
[2018-08-23] MEDS ORDERED: HYDROcodone/APAP 5/325MG TABLET PO PRN (13:08)
[2018-08-23] MEDS ORDERED: POTASSIUM CHLORIDE 20 MEQ TABLET PO PRN ×2 (15:06)
[2018-08-23] MEDS ORDERED: POLYETHYLENE GLYCOL 3350 17 GM PACKET PO PRN (15:06)
[2018-08-23] MEDS ORDERED: DILTIAZEM 125 MG in DEXTROSE 5% IN WATER 100 ML IV PRN (15:06)
[2018-08-23] MEDS ORDERED: MAGNESIUM SULFATE 2 GM/50 ML BAG IV PRN (15:06)
[2018-08-23] MEDS ORDERED: ACETAMINOPHEN 325 MG TABLET PO PRN (15:06)
[2018-08-23] MEDS ORDERED: SENNOSIDES 1 TABLET PO PRN (15:06)
[2018-08-23] MEDS ORDERED: POTASSIUM CHLORIDE 40 MEQ in DEXTROSE 5% IN WATER 500 ML IV PRN (15:06)
[2018-08-23] MEDS: HYDROcodone/APAP 5/325MG TABLET PO PRN (18:01)
[2018-08-23] MEDS: FAMOTIDINE 20 MG TABLET PO SCH (20:17)
[2018-08-24] MEDS: METOPROLOL TARTRATE 5 MG/5 ML VIAL IV PRN ×4 (00:52→08:47)
[2018-08-24] MEDS: IPRATROPIUM/ALBUTEROL 3 ML AMPUL.NEB NEB PRN ×2 (01:55→07:42)
[2018-08-24] MEDS: HYDROcodone/APAP 5/325MG TABLET PO PRN (01:55)
[2018-08-24] MEDS: 0.9 % SODIUM CHLORIDE 10 ML SYRINGE IV SCH ×3 (04:59→20:42)
[2018-08-24] MEDS: DOCUSATE SODIUM 100 MG CAPSULE PO SCH ×3 (08:45→20:42)
[2018-08-24] MEDS: POTASSIUM CHLORIDE 20 MEQ TABLET PO SCH ×2 (08:47→17:58)
[2018-08-24] MEDS: HYDROCHLOROTHIAZIDE 25 MG TABLET PO SCH (08:47)
--- NOTE | 2018-08-24 08:51 | XRay Report ---
HISTORY: Shortness of breath for several months and possible aspiration pneumonia FINDINGS: There is a very small infiltrate medially at the right lung base. This is slightly larger today than was on 08/22/18. On the prior exam there was a transversely oriented band of discoid atelectasis in the same general location. There are a few thin linear bands of scar or discoid atelectasis in left lung base. The previously seen left lower lobe infiltrate has otherwise resolved. The heart is mildly enlarged but there is no congestive heart failure and no pleural effusion is detected. The aorta is mildly tortuous. The mediastinum and bubba are otherwise normal. IMPRESSION: Small infiltrate at the right lung base which could be inflammation, aspiration or atelectasis. Near complete resolution of the left lower lobe infiltrate with residual thin bands of scar or discoid atelectasis Interpreted and Authenticated by: Berto Alvares 08/24/18
[2018-08-24] MEDS ORDERED: METOPROLOL SUCCINATE 50 MG TAB.XL.24H PO SCH (09:00)
[2018-08-24] MEDS ORDERED: cefTRIAXone 1 GM VIAL IV SCH (09:00)
[2018-08-24] MEDS: MEMANTINE 10 MG TABLET PO SCH ×2 (09:15→20:42)
[2018-08-24] MEDS: APIXABAN 2.5 MG TABLET PO SCH ×2 (09:15→20:41)
[2018-08-24] MEDS: FUROSEMIDE 40 MG TABLET PO SCH (09:15)
[2018-08-24] MEDS: METOPROLOL SUCCINATE 50 MG TAB.XL.24H PO SCH (09:16)
[2018-08-24] MEDS: ONDANSETRON 4 MG/2 ML VIAL IV PRN (09:21)
[2018-08-24 09:30] LABS: Mean Cell Volume 98.6 fL (80.0-100.0); Mean Corpuscular HGB Conc 32.3 g/dL (31.0-36.0); Platelet Count 198 K/mcL (140-440); RBC 4.39 M/mcL (4.00-5.20); Red Cell Distribution Width 17.6 % (11.5-14.5)
[2018-08-24 10:03] LABS: ALT/SGPT 10 U/l (0-40); Albumin 3.1 gm/dL (3.2-5.2); Albumin/Globulin Ratio 0.7 (1.0-2.3); Alkaline Phosphatase 83 U/L (39-117); Bilirubin,Direct < 0.2 mg/dL (0.0-0.3); Blood Urea Nitrogen 33 mg/dl (8-23); Gamma Glutamyl Transpeptidase 56 U/L (5-36); Uric Acid 10.7 mg/dL (2.5-8.0)
--- NOTE | 2018-08-24 10:03 | Internal Med Progress Note ---
Medical - PN: Subj Patient information: Note initiated : 08/24/18 at 10:03 am Service Date, if different from initiated Date: [] Patient: Kimmie Pretty 82 y/o F admitted on 08/20/18 for SOB for months. Chief Complaint: [] Interval history: Ms. Pretty is a 82 year old F Presents to the ED with progressive shortness of breath, especially with any exertion. She states that she is bad noticeable shortness of breath over the past couple months but especially worse of the past 3 or 4 days. She is also noticed pedal edema more on the right foot the past few days as well. She has a mild chronic cough but no acute worsening. She has been sleeping in a recliner over the past week because of shortness of breath, positive for orthopnea at night. When she gets up and exerts herself and gets short of breath she does get lightheaded. In the ED she was found to be in A. fib RVR with rates almost 130, she was given diltiazem which brought her heart rate down to the 90s. Chest x-ray revealed pulmonary edema. She had elevated BNP. Denies any chest pain, denies any recent illnesses. Denies any fevers or chills. Does not weigh herself daily. 08/21 Was able to get decent sleep last night. Good urine output overnight. She feels her shortness of breath is improving. Diltiazem drip at 5. She is taken off of supplemental oxygen this morning. Occasional cough. 08/22-patient feeling more short of breath. No concerns per staff with heart rate variable between 80-120. Off diltiazem drip. Echocardiogram EF 25%. Case discussed with patient's son and patient and the need for follow-up with card iology. Increase metoprolol to 50 extended release. X-ray chest shows interval resolution of CHF however bibasilar atelectasis/infiltrates likely aspiration. Start ST eval 08/23- patient seen in room along with son. No overnight events. Worsening chest infiltrates. Patient was to return home. Family considering option of palliation/comfort measures in light of poor quality of life. Family will decide in the next 24 hours. Plan will be to go home as per patient's wishes on oral antibiotics. Has remained afebrile. No other concerns expressed the nursing staff 08/24- patient clinically improved. Family at bedside. Extensive family discussion yesterday on goals of care. Patient will likely discharge home likely in 24 hours. Repeat chest imaging shows interval improvement in chest infiltrates. Heart rate control inadequate rate. Increase metoprolol 100 mg. No overnight fever chills. Case management and coordinating discharge plan - Constitutional Vitals: Vital Signs Temp Pulse Resp BP Pulse Ox 98.0 F 115 H 21 115/71 98 08/24/18 08:01 08/24/18 07:45 08/24/18 08:01 08/24/18 08:01 08/24/18 08:01 Period Temp Pulse Resp BP Sys/Stuart Pulse Ox Last 24 Hr 97.6 F-98.6 F 47-121 13-37 96-134/61-123 88-98 Intake and Output 08/23/18 08/24/18 08/24/18 21:59 05:59 13:59 Intake Total 100 Output Total 400 400 Balance -300 -400 Weight 160 lb 11.2 oz Intake & Output: Intake & Output 08/23/18 08/24/18 08/24/18 21:59 05:59 13:59 Intake Total 100 Output Total 400 400 Balance -300 -400 Weight 160 lb 11.2 oz Intake: Oral 100 Output: Urine Catheter Amount 400 400 Other: Meal Dinner Percent of Meal Consumed 25% Feeding Ability Assist with Tray Set Up Urine Appearance Clear Clear Uretheral (Fuentes) Clear Urine Color Straw Dark Yellow Uretheral (Fuentes) Dark Yellow Stool Size Small Stool Color Brown Stool Consistency Soft # of times incontinent of 1 Bowels General appearance: no acute distress Exam: Alert oriented Slightly short of breath Atrial fibrillation on telemetry Lymphedema Medical - PN: Obj Da - Labs CBC & Chem 7: 08/24/18 08:40 08/24/18 08:40 Labs: Abnormal Lab Results 08/24/18 08/22/18 08:40 03:44 RDW 17.6 H Carbon Dioxide 19 L BUN 28 H Creatinine 1.5 H Glucose 124 H Calcium 8.4 L Meds: Medications Acetaminophen (Tylenol) 650 mg PO Q6HP PRN PRN Reason: PAIN/FEVER > 101 Hydrocodone Bitart/Acetaminophen ([place] 5/325mg) 1 tab PO Q6HP PRN PRN Reason: PAIN LEVEL 3-6 Last Admin: 08/24/18 01:55 Dose: 1 tab Documented by: Albuterol/Ipratropium (Duoneb) 3 ml NEB Q4HP PRN PRN Reason: Shortness Of Breath Last Admin: 08/24/18 07:42 Dose: 3 ml Documented by: Apixaban (Eliquis) 2.5 mg PO BID [facility] Last Admin: 08/24/18 09:15 Dose: 2.5 mg Documented by: Ceftriaxone Sodium (Rocephin) 1 gm IV DAILY [facility]; Protocol Last Admin: 08/24/18 09:15 Dose: 1 gm Documented by: Docusate Sodium (Colace) 100 mg PO BID [facility] Last Admin: 08/24/18 09:23 Dose: 100 mg Documented by: Famotidine (Pepcid) 20 mg PO HS [facility] Last Admin: 08/23/18 20:17 Dose: 20 mg Documented by: Furosemide (Lasix) 40 mg PO DAILY [facility] Last Admin: 08/24/18 09:15 Dose: 40 mg Documented by: Hydrochlorothiazide (Oretic) 25 mg PO DAILY [facility] Last Admin: 08/24/18 08:47 Dose: 25 mg Documented by: Diltiazem HCl 125 mg/ Dextrose 125 mls @ 5 mls/hr IV Q12HP PRN; Protocol PRN Reason: Tachyarrhythmias Potassium Chloride 40 meq/ (Dextrose) 520 mls @ 130 mls/hr IV UD PRN PRN Reason: Potassium < 3 Magnesium Sulfate (Magnesium Sulfate) 2 gm in 50 mls @ 50 mls/hr IV UD PRN PRN Reason: Magnesium </= 1.6 Memantine (Namenda) 10 mg PO BID [facility] Last Admin: 08/24/18 09:15 Dose: 10 mg Documented by: Metoprolol Succinate (Toprol Xl) 100 mg PO DAILY [facility] Last Admin: 08/24/18 09:16 Dose: 100 mg Documented by: Metoprolol Tartrate (Lopressor) 5 mg IV Q2HP PRN PRN Reason: Tachyarrhythmias HR>110 Last Admin: 08/24/18 08:47 Dose: 5 mg Documented by: Ondansetron HCl (Zofran) 4 mg IV Q4HP PRN PRN Reason: Nausea And Vomiting Last Admin: 08/24/18 09:21 Dose: 4 mg Documented by: Polyethylene Glycol (Miralax) 17 gm PO DAILYP PRN PRN Reason: Constipation Potassium Chloride (Kdur) 40 meq PO UD PRN PRN Reason: Potssium is 3-3.5 Potassium Chloride (Kdur) 40 meq PO UD PRN PRN Reason: Potassium < 3 Potassium Chloride (Kdur) 20 meq PO BIDCC [facility] Last Admin: 08/24/18 08:47 Dose: 20 meq Documented by: Senna (Senokot) 2 tab PO HSP PRN PRN Reason: Constipation Sodium Chloride (Saline Flush) 10 ml IV Q8 [facility] Last Admin: 08/24/18 04:59 Dose: 10 ml Documented by: Medical - PN: A/P - Time Spent With Patient Total time spent is greater than 50% in coordination of care (as documented) at patient's floor/unit and/or counseling patient: 25 - 35 minutes (1) Acute decompensated heart failure Status: Acute Assessment and plan: * Acute decompensated heart failure systolic with EF 25%-clinically improving with diuresis . Resolved on imaging * A. fib with RVR- increase metoprolol to 100 daily. Heart rate variable around 110 * Aspiration pneumonia-radiological resolution noted. Continue ST eval/aspiration precaution. * Hypoxic respiratory failure secondary to combination of above-clinically improved * Acute GNR cystitis UTI on Rocephin * History of dementia on memantine * Anticoagulation on Apixiban * Full code Plan * PT OT/nutrition support * Continue aspiration precautions/diet per ST recommendations * Increase metoprolol to 100 * Continue oral diuretics * DC antibiotics * Possible discharge in 24 hours with home health Current Visit: Yes Medical - PN: Qual - VTE Deep Vein Thrombosis/Pulmonary Embolism Present on Admission: No
[2018-08-24 10:09] LABS: Anisocytosis 1+ (NONE SEEN); Band Neutrophils % 9 % (0-10); Lymphocytes % 16 % (15-49); Monocytes % (Manual) 7 % (1-12); Platelet Estimate NORMAL (NORMAL); RBC Morphology ABNORM (NORMAL); Segmented Neutrophils % 68 % (38-78)
[2018-08-24] MEDS ORDERED: CALCIUM CARBONATE 500 MG TAB.CHEW CHEWED PRN (16:12)
[2018-08-24] MEDS: FAMOTIDINE 20 MG TABLET PO SCH (20:42)
[2018-08-25] MEDS: ONDANSETRON 4 MG/2 ML VIAL IV PRN ×4 (00:30→16:43)
[2018-08-25] MEDS: 0.9 % SODIUM CHLORIDE 10 ML SYRINGE IV SCH ×3 (05:34→21:01)
[2018-08-25 06:18] LABS: Mean Cell Volume 98.5 fL (80.0-100.0); Mean Corpuscular HGB Conc 32.4 g/dL (31.0-36.0); Platelet Count 181 K/mcL (140-440); Red Cell Distribution Width 17.2 % (11.5-14.5)
[2018-08-25 06:45] LABS: ALT/SGPT 10 U/l (0-40); Albumin 2.9 gm/dL (3.2-5.2); Albumin/Globulin Ratio 0.7 (1.0-2.3); Alkaline Phosphatase 75 U/L (39-117); Bilirubin,Direct < 0.2 mg/dL (0.0-0.3); Blood Urea Nitrogen 41 mg/dl (8-23); Gamma Glutamyl Transpeptidase 52 U/L (5-36); Uric Acid 12.2 mg/dL (2.5-8.0)
[2018-08-25 07:49] LABS: Anisocytosis 1+ (NONE SEEN); Band Neutrophils % 13 % (0-10); Eosinophils % (Manual) 2 % (0-7); Lymphocytes % 20 % (15-49); Monocytes % (Manual) 10 % (1-12); Platelet Estimate NORMAL (NORMAL); RBC Morphology ABNORM (NORMAL); Segmented Neutrophils % 55 % (38-78)
[2018-08-25] MEDS: METOPROLOL TARTRATE 5 MG/5 ML VIAL IV PRN ×2 (08:13→16:42)
[2018-08-25] MEDS: MEMANTINE 10 MG TABLET PO SCH ×2 (08:21→20:36)
[2018-08-25] MEDS: METOPROLOL SUCCINATE 50 MG TAB.XL.24H PO SCH (08:21)
[2018-08-25] MEDS: APIXABAN 2.5 MG TABLET PO SCH ×2 (08:21→20:36)
[2018-08-25] MEDS: HYDROCHLOROTHIAZIDE 25 MG TABLET PO SCH (08:21)
[2018-08-25] MEDS: FUROSEMIDE 40 MG TABLET PO SCH (08:24)
[2018-08-25] MEDS: DOCUSATE SODIUM 100 MG CAPSULE PO SCH ×2 (08:24→20:36)
[2018-08-25] MEDS: POTASSIUM CHLORIDE 20 MEQ TABLET PO SCH ×2 (08:24→16:31)
--- NOTE | 2018-08-25 09:44 | XRay Report ---
HISTORY: Small bowel obstruction FINDINGS: There are several loops of abnormally dilated small intestine in the mid abdomen and pelvis. They measure up to 5.5 cm in diameter. There is relatively little air and stool in the colon. Numerous surgical clips are present in both sides of the lower pelvis. There are a few vascular calcifications in the abdomen or pelvis. No gross free intra-abdominal air is seen. IMPRESSION: Small bowel obstruction Interpreted and Authenticated by: Berto Alvares 08/25/18
[2018-08-25] MEDS: HYDROcodone/APAP 5/325MG TABLET PO PRN (10:18)
--- NOTE | 2018-08-25 10:27 | Internal Med Progress Note ---
Medical - PN: Subj Patient information: Note initiated : 08/25/18 at 10:23 am Service Date, if different from initiated Date: [] Patient: Kimmie Pretty 82 y/o F admitted on 08/20/18 for SOB for months. Chief Complaint: [] Interval history: Ms. Pretty is a 82 year old F Presents to the ED with progressive shortness of breath, especially with any exertion. She states that she is bad noticeable shortness of breath over the past couple months but especially worse of the past 3 or 4 days. She is also noticed pedal edema more on the right foot the past few days as well. She has a mild chronic cough but no acute worsening. She has been sleeping in a recliner over the past week because of shortness of breath, positive for orthopnea at night. When she gets up and exerts herself and gets short of breath she does get lightheaded. In the ED she was found to be in A. fib RVR with rates almost 130, she was given diltiazem which brought her heart rate down to the 90s. Chest x-ray revealed pulmonary edema. She had elevated BNP. Denies any chest pain, denies any recent illnesses. Denies any fevers or chills. Does not weigh herself daily. 08/21 Was able to get decent sleep last night. Good urine output overnight. She feels her shortness of breath is improving. Diltiazem drip at 5. She is taken off of supplemental oxygen this morning. Occasional cough. 08/22-patient feeling more short of breath. No concerns per staff with heart rate variable between 80-120. Off diltiazem drip. Echocardiogram EF 25%. Case discussed with patient's son and patient and the need for follow-up with card iology. Increase metoprolol to 50 extended release. X-ray chest shows interval resolution of CHF however bibasilar atelectasis/infiltrates likely aspiration. Start ST eval 08/23- patient seen in room along with son. No overnight events. Worsening chest infiltrates. Patient was to return home. Family considering option of palliation/comfort measures in light of poor quality of life. Family will decide in the next 24 hours. Plan will be to go home as per patient's wishes on oral antibiotics. Has remained afebrile. No other concerns expressed the nursing staff 08/24- patient clinically improved. Family at bedside. Extensive family discussion yesterday on goals of care. Patient will likely discharge home likely in 24 hours. Repeat chest imaging shows interval improvement in chest infiltrates. Heart rate control inadequate rate. Increase metoprolol 100 mg. No overnight fever chills. Case management and coordinating discharge plan 08/25-patient complains of significant nausea and abdominal distention,, abdominal imaging reveals small bowel obstruction. Surgery consulted. NG tube decompression ordered. Start crystalloids/NPO. History of hysterectomy in the past but no recent bowel surgeries. Patient appears fatigued and lethargic. Daughter at bedside. Creatinine uptrending now at 1.8 from 1.4. Significant pyuria. Start Zosyn for empiric UTI/bowel obstruction coverage and signs of sepsis - Constitutional Vitals: Vital Signs Temp Pulse Resp BP Pulse Ox 99.0 F 132 H 26 H 110/82 91 08/25/18 08:06 08/24/18 08:00 08/25/18 08:06 08/25/18 08:06 08/25/18 08:06 Period Temp Pulse Resp BP Sys/Stuart Pulse Ox Last 24 Hr 97.0 F-99.0 F 11-36 80-130/58-89 91-98 Intake and Output 08/24/18 08/25/18 08/25/18 21:59 05:59 13:59 Intake Total 580 360 Output Total 210 400 Balance 370 -40 Weight 163 lb 12.8 oz Intake & Output: Intake & Output 08/24/18 08/25/18 08/25/18 21:59 05:59 13:59 Intake Total 580 360 Output Total 210 400 Balance 370 -40 Weight 163 lb 12.8 oz Intake: Oral 580 360 Output: Urine Catheter Amount 210 400 Other: Meal Nourishment/Supplement Percent of Meal Consumed 100% Feeding Ability Assist with Tray Set Up General appearance: moderate distress Exam: Distended abdomen Very fatigued and nauseous Labored breathing A. fib on telemetry Lymphedema resolved Medical - PN: Obj Da - Labs CBC & Chem 7: 08/26/18 03:36 08/26/18 03:36 Labs: Abnormal Lab Results 08/25/18 08/25/18 08/24/18 03:52 03:52 08:40 WBC 4.1 L RDW 17.2 H Band Neutrophils % 13 H RBC Morphology Abnorm A Anisocytosis 1+ A Sodium 132 L Chloride 92 L 94 L BUN 41 H 33 H Creatinine 1.8 H 1.6 H Glucose 114 H 139 H Uric Acid 12.2 H 10.7 H GGT 52 H 56 H Albumin 2.9 L 3.1 L Globulin 4.1 H 4.4 H Albumin/Globulin Ratio 0.7 L 0.7 L 08/24/18 08:40 WBC RDW 17.6 H Band Neutrophils % RBC Morphology Abnorm A Anisocytosis 1+ A Sodium Chloride BUN Creatinine Glucose Uric Acid GGT Albumin Globulin Albumin/Globulin Ratio Meds: Medications Acetaminophen (Tylenol) 650 mg PO Q6HP PRN PRN Reason: PAIN/FEVER > 101 Last Admin: 08/24/18 12:29 Dose: 650 mg Documented by: Hydrocodone Bitart/Acetaminophen ([place] 5/325mg) 1 tab PO Q6HP PRN PRN Reason: PAIN LEVEL 3-6 Last Admin: 08/25/18 10:18 Dose: 1 tab Documented by: Albuterol/Ipratropium (Duoneb) 3 ml NEB Q4HP PRN PRN Reason: Shortness Of Breath Last Admin: 08/24/18 07:42 Dose: 3 ml Documented by: Apixaban (Eliquis) 2.5 mg PO BID [facility] Last Admin: 08/25/18 08:21 Dose: 2.5 mg Documented by: Calcium Carbonate/Glycine (Tums) 1,000 mg CHEWED Q4HP PRN PRN Reason: Dyspepsia Docusate Sodium (Colace) 100 mg PO BID [facility] Last Admin: 08/25/18 08:24 Dose: 100 mg Documented by: Famotidine (Pepcid) 20 mg PO [facility] Last Admin: 08/24/18 20:42 Dose: 20 mg Documented by: Furosemide (Lasix) 40 mg PO DAILY [facility] Last Admin: 08/25/18 08:24 Dose: 40 mg Documented by: Hydrochlorothiazide (Oretic) 25 mg PO DAILY [facility] Last Admin: 08/25/18 08:21 Dose: 25 mg Documented by: Potassium Chloride 40 meq/ (Dextrose) 520 mls @ 130 mls/hr IV UD PRN PRN Reason: Potassium < 3 Magnesium Sulfate (Magnesium Sulfate) 2 gm in 50 mls @ 50 mls/hr IV UD PRN PRN Reason: Magnesium </= 1.6 Sodium Chloride (Sodium Chloride 0.9%) 1,000 mls @ 50 mls/hr IV .Q20H [facility] Stop: 08/27/18 22:29 Piperacillin Sod/Tazobactam (Sod 2.25 gm/ Dextrose) 50 mls @ 100 mls/hr IV Q6H [facility]; Protocol Memantine (Namenda) 10 mg PO BID [facility] Last Admin: 08/25/18 08:21 Dose: 10 mg Documented by: Metoprolol Succinate (Toprol Xl) 100 mg PO DAILY [facility] Last Admin: 08/25/18 08:21 Dose: 100 mg Documented by: Metoprolol Tartrate (Lopressor) 5 mg IV Q2HP PRN PRN Reason: Tachyarrhythmias HR>110 Last Admin: 08/25/18 08:13 Dose: 5 mg Documented by: Ondansetron HCl (Zofran) 4 mg IV Q4HP PRN PRN Reason: Nausea And Vomiting Last Admin: 08/25/18 05:09 Dose: 4 mg Documented by: Polyethylene Glycol (Miralax) 17 gm PO DAILYP PRN PRN Reason: Constipation Potassium Chloride (Kdur) 40 meq PO UD PRN PRN Reason: Potssium is 3-3.5 Potassium Chloride (Kdur) 40 meq PO UD PRN PRN Reason: Potassium < 3 Potassium Chloride (Kdur) 20 meq PO BIDCC [facility] Last Admin: 08/25/18 08:24 Dose: 20 meq Documented by: Senna (Senokot) 2 tab PO HSP PRN PRN Reason: Constipation Sodium Chloride (Saline Flush) 10 ml IV Q8 [facility] Last Admin: 08/25/18 05:34 Dose: 10 ml Documented by: Medical - PN: A/P - Time Spent With Patient Total time spent is greater than 50% in coordination of care (as documented) at patient's floor/unit and/or counseling patient: 25 - 35 minutes (1) Acute decompensated heart failure Status: Acute Assessment and plan: * Small bowel obstruction on abdominal imaging-NPO/conservative management/NG decompression/surgery consult * Complicated Escherichia coli UTI-continue antibiotic coverage * Sepsis secondary to above * TAMMIE secondary to sepsis/volume depletion, start crystalloids, hold diuretics. * Acute decompensated heart failure systolic with EF 25%-clinically improving with diuresis . Resolved on imaging * A. fib with RVR-continue rate controlled on beta elizabeth * Aspiration pneumonia-radiological resolution noted. Continue ST eval/aspiration precaution. * Hypoxic respiratory failure secondary to combination of above-clinically improved * History of dementia on memantine * Anticoagulation on Apixiban * Full code Plan * NG decompression/surgery consult * Crystalloids and antiemetics * Antibiotic coverage * Hold Lasix * CT abdomen * Hold anticoagulation * Increase metoprolol to 100 Current Visit: Yes Medical - PN: Qual - VTE Deep Vein Thrombosis/Pulmonary Embolism Present on Admission: No
[2018-08-25] MEDS: PIPERACILLIN SODIUM/TAZOBACTAM 2.25 GM in DEXTROSE 5% IN WATER 50 ML IV SCH ×2 (10:34→17:43)
[2018-08-25] MEDS: 0.9 % SODIUM CHLORIDE 1,000 ML IV SCH ×2 (10:34→18:57)
[2018-08-25] MEDS ORDERED: HYDROmorphone 2 MG/ML VIAL IV ONE (10:35)
--- NOTE | 2018-08-25 11:10 | General Surgery Consult Note ---
History of Present Illness Patient information: Note initiated : 08/25/18 at 11:08 am Service Date, if different from initiated Date: [] Patient: Kimmie Pretty 82 y/o F admitted on 08/20/18 for SOB for months. Chief Complaint: [] 82 yo lady I was asked to see today. She was admitted 08/20 with increasing SOB with the following notes over the last few days: Ms. Pretty is a 82 year old F Presents to the ED with progressive shortness of breath, especially with any exertion. She states that she is bad noticeable shortness of breath over the past couple months but especially worse of the past 3 or 4 days. She is also noticed pedal edema more on the right foot the past few days as well. She has a mild chronic cough but no acute worsening. She has been sleeping in a recliner over the past week because of shortness of breath, positive for orthopnea at night. When she gets up and exerts herself and gets short of breath she does get lightheaded. In the ED she was found to be in A. fib RVR with rates almost 130, she was given diltiazem which brought her heart rate down to the 90s. Chest x-ray revealed pulmonary edema. She had elevated BNP. Denies any chest pain, denies any recent illnesses. Denies any fevers or chills. Does not weigh herself daily. 08/21 Was able to get decent sleep last night. Good urine output overnight. She feels her shortness of breath is improving. Diltiazem drip at 5. She is taken off of supplemental oxygen this morning. Occasional cough. 08/22-patient feeling more short of breath. No concerns per staff with heart rate variable between 80-120. Off diltiazem drip. Echocardiogram EF 25%. Case discussed with patient's son and patient and the need for follow-up with cardiology. Increase metoprolol to 50 extended release. X-ray chest shows interval resolution of CHF however bibasilar atelectasis/infiltrates likely aspiration. Start ST eval 08/23- patient seen in room along with son. No overnight events. Worsening chest infiltrates. Patient was to return home. Family considering option of palliation/comfort measures in light of poor quality of life. Family will decide in the next 24 hours. Plan will be to go home as per patient's wishes on oral antibiotics. Has remained afebrile. No other concerns expressed the nursing staff 08/24- patient clinically improved. Family at bedside. Extensive family discussion yesterday on goals of care. Patient will likely discharge home likely in 24 hours. Repeat chest imaging shows interval improvement in chest infiltrates. Heart rate control inadequate rate. Increase metoprolol 100 mg. No overnight fever chills. Case management and coordinating discharge plan 08/25-patient complains of significant nausea and abdominal distention,, abdominal imaging reveals small bowel obstruction. Surgery consulted. NG tube decompression ordered. Start crystalloids/NPO. History of hysterectomy in the past but no recent bowel surgeries. Patient appears fatigued and lethargic. Daughter at bedside. Creatinine uptrending now at 1.8 from 1.4. Significant pyuria. Start Zosyn for empiric UTI/bowel obstruction coverage and signs of sepsis Daughter at bedside - notes she had "cancer surgery" years ago - for uterine ca ncer. No notation of RT or adjuvant Therapy. Only abdominal surgery. Has had problems with distended abdomen according to daughter over last few days. Had large BM last night and another this morning - although she has been nauseous and did vomit this morning. Denies any pain in her abdomen. Reason for consult: central line (possible SBO) Requesting physician: Jose David Richardson Review of Systems ROS unobtainable: due to mental status Past History Past medical history: Medical history: Chronic atrial fibrillation, on Eliquis and Toprol Borderline diabetes per family Hypertension History of TIA Uterine cancer Surgical history: Hysterectomy Tonsillectomy Family history: Mother had CHF father and COPD Social history: Patient denies tobacco or alcohol Ambulates with a cane Lives with family Medications and Allergies Home Medications Medication Instructions Recorded Confirmed Type apixaban 2.5 mg tablet 2.5 mg PO BID tab 06/13/18 08/20/18 History losartan 50 mg tablet 50 mg PO QDAY 06/13/18 08/20/18 History metoprolol succinate ER 50 mg 25 mg PO QDAY each 06/13/18 08/20/18 History capsule sprinkle, ext. release 24 hr potassium chloride ER 20 mEq 20 meq PO BID 06/13/18 08/20/18 History tablet,extended release Hydrochlorothiazide [Oretic] 25 mg PO DAILY 08/20/18 08/20/18 History Memantine [Namenda] 10 mg PO BID 08/20/18 08/20/18 History Allergies Allergy/AdvReac Type Severity Reaction Status Date / Time No Known Drug Allergies Allergy Unverified 08/20/18 17:49 Exam Temp Pulse Resp BP Pulse Ox 99.0 F 132 H 26 H 110/82 91 08/25/18 08:06 08/24/18 08:00 08/25/18 08:06 08/25/18 08:06 08/25/18 08:06 - General physical appearance no distress, chronically ill - Eyes normal ocular movement. negative: icteric - ENT normal mucosa - Neck no masses, trachea midline, no lymphadenopathy, no venous distension - Cardiovascular Cardiovascular exam IM: Present: normal rate and rhythm. Absent: rubs, systolic murmur Peripheral pulses: 3+/4+: carotid (L), carotid (R), radial (L), radial (R) - Respiratory other (decent expansion, distant BS - no rales or rhonchi) - Abdomen Abdomen: Present: soft, non tender, surgical scars (lower midline), distended. Absent: bowel sounds, guarding, rigid, rebound Hernia: Present: incisional (just to R of umbilicus), reducible - Neurologic Present: memory loss Results - Labs 08/25/18 03:52 08/25/18 03:52 Abnormal lab results 08/25/18 08/25/18 Range/Units 03:52 03:52 WBC 4.1 L (4.5-11.0) K/mcL RDW 17.2 H (11.5-14.5) % Band Neutrophils % 13 H (0-10) % RBC Morphology Abnorm A (NORMAL) Anisocytosis 1+ A (NONE SEEN) Chloride 92 L (96-108) mmol/L BUN 41 H (8-23) mg/dl Creatinine 1.8 H (0.6-1.1) mg/dl Glucose 114 H (70-105) mg/dL Uric Acid 12.2 H (2.5-8.0) mg/dL GGT 52 H (5-36) U/L Albumin 2.9 L (3.2-5.2) gm/dL Globulin 4.1 H (2.2-3.7) gm/dL Albumin/Globulin Ratio 0.7 L (1.0-2.3) Diabetes panel 08/25/18 Range/Units 03:52 Sodium 136 (133-145) mmol/L Potassium 3.6 (3.3-5.1) mmol/L Chloride 92 L (96-108) mmol/L Carbon Dioxide 29 (22-30) mmol/L BUN 41 H (8-23) mg/dl Creatinine 1.8 H (0.6-1.1) mg/dl Glucose 114 H (70-105) mg/dL Calcium 8.9 (8.6-10.4) mg/dl AST 16 (0-37) U/l ALT 10 (0-40) U/l Alkaline Phosphatase 75 (39-117) U/L Total Protein 7.0 (5.9-8.4) gm/dL Albumin 2.9 L (3.2-5.2) gm/dL Triglycerides 92 (<150) mg/dl Calcium panel 08/25/18 Range/Units 03:52 Calcium 8.9 (8.6-10.4) mg/dl Phosphorus 4.3 (2.7-4.5) mg/dL Albumin 2.9 L (3.2-5.2) gm/dL Pituitary panel 08/25/18 Range/Units 03:52 Sodium 136 (133-145) mmol/L Potassium 3.6 (3.3-5.1) mmol/L Chloride 92 L (96-108) mmol/L Carbon Dioxide 29 (22-30) mmol/L BUN 41 H (8-23) mg/dl Creatinine 1.8 H (0.6-1.1) mg/dl Glucose 114 H (70-105) mg/dL Calcium 8.9 (8.6-10.4) mg/dl Adrenal panel 08/25/18 Range/Units 03:52 Sodium 136 (133-145) mmol/L Potassium 3.6 (3.3-5.1) mmol/L Chloride 92 L (96-108) mmol/L Carbon Dioxide 29 (22-30) mmol/L BUN 41 H (8-23) mg/dl Creatinine 1.8 H (0.6-1.1) mg/dl Glucose 114 H (70-105) mg/dL Calcium 8.9 (8.6-10.4) mg/dl Total Bilirubin 0.5 (0.0-1.0) mg/dL AST 16 (0-37) U/l ALT 10 (0-40) U/l Alkaline Phosphatase 75 (39-117) U/L Total Protein 7.0 (5.9-8.4) gm/dL Albumin 2.9 L (3.2-5.2) gm/dL All other labs normal. - Imaging Abdominal x-ray: report reviewed, image reviewed (single upright view shows a few loops of mildly dilated small bowel. don't see any distended stomach.) CT scan - abdomen: image reviewed (Dilated stomach and SB down into pelvis. Looks like some normal SB caliber distal to pelvic region. Colon not dilated & without much stool) Assessment and Plan (1) Partial small bowel obstruction Will go ahead with NGT Will give some PO contrast after stomach emptied out and begin a small bowel series May end up repeating CT scan in am Discussed with daughter findings BEFORE CT scan - she is not here now. PCP notified. > 60 minutes spent Status: Acute (2) Congestive heart failure Status: Acute (3) Atrial fibrillation Status: Acute (4) Acute decompensated heart failure Status: Acute
--- NOTE | 2018-08-25 12:18 | Cat Scan Report ---
CLINICAL INFORMATION: Small bowel obstruction and uterine cancer COMPARISON: None. TECHNIQUE: The abdomen was imaged without oral or IV contrast, scanning from the diaphragm to the symphysis pubis. Sagittal and coronal reformats were created. The radiation exposure was limited using dose reduction technology. FINDINGS: A small to moderate-sized layering right-sided pleural effusion is present. This is causing mild compressive atelectasis of the right lower lobe. There are thick bands of scar or atelectasis in the left lung base and the inferior segment of the lingula. The heart is mildly enlarged. There are densely calcified plaques in the coronary arteries. There is also a large amount of plaque in the thoracic and abdominal aorta. Evaluation the abdominal organs without contrast is somewhat limited. The liver and spleen appear normal in size. There is a subcapsular cyst inferiorly in the right lobe of liver which measures 1.6 cm. The spleen is homogeneous.. Gallbladder is somewhat distended but there are no stones or thickening of the wall. No abnormality is seen within the pancreas or adrenals. In the lower pole the right kidney there is a 2 x 3 mm calyceal stone there is a high attenuation well-circumscribed 1 cm nodule located in the central portion of the left kidney. Adjacent to this there is a 2 mm calculus. No hydronephrosis is present in the left kidney. The ureters are decompressed. Patient has moderate atherosclerotic disease in the aorta. 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 The stomach is distended with large amount of fluid. There is also moderate dilatation of the duodenum and jejunum and proximal ileum. There is an ill-defined transition point in the mid to distal ileum in the deep right lower pelvis. The terminal ileum is nondistended. Patient has a large amount liquefied stool in the cecum and ascending colon. There are air-fluid levels in both large and small intestine. Patient has an incarcerated periumbilical hernia containing a segment of the mid transverse colon. Distal to the hernia the transverse descending and sigmoid colon are decompressed. Proximal to the hernia there is a moderate amount of fluid in the proximal transverse colon. No ascites is present within the abdomen or pelvis and there is no apparent mass or adenopathy. The uterus and ovaries have been removed. The urinary bladder is decompressed by Fuentes catheter. There is degenerative disc disease and arthritis at multiple levels in the thoracic and lumbar spine. No bone metastasis are seen. There is an intraosseous hemangioma in the body of L1. IMPRESSION: Incarcerated periumbilical hernia containing a segment of mid transverse colon. This is causing partial large bowel obstruction Small bowel obstruction. The transition point appears to be deep in the right lower pelvis. This is probably due to an adhesion. Atrophic left kidney containing a complex cyst which may contain blood products. Distended gallbladder but without evidence of gallstones or cholecystitis Right-sided pleural effusion Severe atherosclerotic disease Interpreted and Authenticated by: Berto Alvares 08/25/18
--- NOTE | 2018-08-25 12:56 | XRay Report ---
HISTORY: Small bowel obstruction and evaluate placement of a nasogastric tube FINDINGS: There is a nasogastric tube positioned with the tip in the region of the cardia. The sidehole of the catheter is in the distal thoracic esophagus. The stomach has become decompressed compared with the prior abdomen CT. The small intestine is still abnormally dilated due to small bowel obstruction. IMPRESSION: Improved gastric distention following insertion of a nasogastric tube. The tube could be advanced several more centimeters. ICU was called with the results Interpreted and Authenticated by: Berto Alvares 08/25/18
[2018-08-25] MEDS: FAMOTIDINE 20 MG TABLET PO SCH (20:36)
[2018-08-25] MEDS: PROMETHAZINE 25 MG/ML VIAL IV PRN (20:42)
[2018-08-25] MEDS ORDERED: PROMETHAZINE 25 MG/ML VIAL ONE (20:43)
[2018-08-26] MEDS: PIPERACILLIN SODIUM/TAZOBACTAM 2.25 GM in DEXTROSE 5% IN WATER 50 ML IV SCH ×3 (00:10→11:38)
[2018-08-26] MEDS: METOCLOPRAMIDE 10 MG/2 ML VIAL IV SCH ×3 (00:10→11:40)
[2018-08-26] MEDS: METOPROLOL TARTRATE 5 MG/5 ML VIAL IV PRN ×2 (02:25→08:57)
[2018-08-26] MEDS: ACETAMINOPHEN 650 MG/65 ML BOTTLE IV PRN ×2 (02:27→09:01)
[2018-08-26 04:55] LABS: Mean Cell Volume 98.4 fL (80.0-100.0); Mean Corpuscular HGB Conc 32.2 g/dL (31.0-36.0); Platelet Count 210 K/mcL (140-440); RBC 4.21 M/mcL (4.00-5.20); Red Cell Distribution Width 17.3 % (11.5-14.5)
[2018-08-26 05:32] LABS: ALT/SGPT 10 U/l (0-40); Albumin 3.1 gm/dL (3.2-5.2); Albumin/Globulin Ratio 0.7 (1.0-2.3); Alkaline Phosphatase 82 U/L (39-117); Bilirubin,Direct 0.3 mg/dL (0.0-0.3); Blood Urea Nitrogen 58 mg/dl (8-23); Gamma Glutamyl Transpeptidase 57 U/L (5-36); Uric Acid 15.4 mg/dL (2.5-8.0)
[2018-08-26] MEDS: 0.9 % SODIUM CHLORIDE 10 ML SYRINGE IV SCH ×2 (05:43→14:02)
[2018-08-26 06:28] LABS: Anisocytosis 1+ (NONE SEEN); Band Neutrophils % 24 % (0-10); Dohle Bodies FEW (NONE SEEN); Lymphocytes % 12 % (15-49); Monocytes % (Manual) 9 % (1-12); Platelet Estimate NORMAL (NORMAL); RBC Morphology ABNORM (NORMAL); Segmented Neutrophils % 55 % (38-78); Toxic Granulation FEW (NONE SEEN)
[2018-08-26] MEDS: POTASSIUM CHLORIDE 20 MEQ TABLET PO SCH (07:18)
[2018-08-26] MEDS: APIXABAN 2.5 MG TABLET PO SCH (07:19)
[2018-08-26] MEDS: METOPROLOL SUCCINATE 50 MG TAB.XL.24H PO SCH (07:19)
[2018-08-26] MEDS: DOCUSATE SODIUM 100 MG CAPSULE PO SCH (07:19)
[2018-08-26] MEDS: 0.9 % SODIUM CHLORIDE 1,000 ML IV SCH ×2 (07:19→09:30)
[2018-08-26] MEDS: HYDROCHLOROTHIAZIDE 25 MG TABLET PO SCH (07:19)
[2018-08-26] MEDS: MEMANTINE 10 MG TABLET PO SCH (07:19)
[2018-08-26] MEDS: FUROSEMIDE 40 MG TABLET PO SCH (07:19)
[2018-08-26] MEDS ORDERED: 0.9 % SODIUM CHLORIDE 1,000 ML IV SCH (08:15)
--- NOTE | 2018-08-26 08:38 | Nephrology Consult Note ---
History of Present Illness - Reason for Consult Patient information: Note initiated : 08/26/18 at 8:36 am Patient: Kimmie Pretty 82 y/o F admitted on 08/20/18 for SOB for months. Consult date: 08/26/18 acute renal failure Requesting physician: Jose David Richardson - Chief Complaint Shortness of breath - History of Present Illness Kimmie Pretty is an 82-year-old female with coronary artery disease by dense calcifications on CT, chronic combined systolic and diastolic heart failure (Echo on 08/21/18: LVEF 25%, Grade III diastolic dysfunction), chronic atrial fibrillation on Eliquis anticoagulation, hypertension, diabetes mellitus type 2, chronic kidney disease stage 4, chronic anemia due to kidney disease and iron deficiency, history of TIA, admitted on 08/20/18. Review of Systems Constitutional: lethargy, weakness Cardiovascular: dyspnea, no chest pain Respiratory: no hemoptysis, no wheezing Gastrointestinal: abdominal pain, nausea Genitourinary: no dysuria, no hematuria Musculoskeletal: no joint swelling, no neck pain Integumentary: no rash, no wounds Neurological: no confusion, no focal weakness Psychiatric: no anxiety, no panic attacks Endocrine: no cold intolerance, no heat intolerance Hematologic/Lymphatic: no easy bleeding, no easy bruising Allergic/Immunologic: no tongue swelling, no uticaria Past History Past medical history: Chronic atrial fibrillation, on Eliquis Hypertension History of TIA Uterine cancer Past surgical history: Hysterectomy Tonsillectomy Past family history: No history of kidney disease Past social history: Denies tobacco or alcohol Lives with family Medications and Allergies Home Medications Medication Instructions Recorded Confirmed Type apixaban 2.5 mg tablet 2.5 mg PO BID tab 06/13/18 08/20/18 History losartan 50 mg tablet 50 mg PO QDAY 06/13/18 08/20/18 History metoprolol succinate ER 50 mg 25 mg PO QDAY each 06/13/18 08/20/18 History capsule sprinkle, ext. release 24 hr potassium chloride ER 20 mEq 20 meq PO BID 06/13/18 08/20/18 History tablet,extended release Hydrochlorothiazide [Oretic] 25 mg PO DAILY 08/20/18 08/20/18 History Memantine [Namenda] 10 mg PO BID 08/20/18 08/20/18 History Allergies Allergy/AdvReac Type Severity Reaction Status Date / Time No Known Drug Allergies Allergy Unverified 08/20/18 17:49 Exam - Vital Signs Vital signs: Temp Pulse Resp BP Pulse Ox 97.2 F 109 H 18 95/60 97 08/26/18 07:31 08/25/18 08:00 08/26/18 07:31 08/26/18 07:31 08/26/18 07:31 - General Appearance General appearance: frail EENT: mucous membranes dry Neck: supple Respiratory: clear Cardiology: no edema Gastrointestinal: distended Integumentary: warm and dry Neurologic: no focal deficit Musculoskeletal: no deformities Psychiatric: mood/affect appropriate, cooperative Results - Lab Results 08/26/18 03:36 08/26/18 03:36 Most recent lab results Calcium 9.5 mg/dl (8.6-10.4) 08/26/18 03:36 Phosphorus 6.2 mg/dL (2.7-4.5) H* 08/26/18 03:36 Magnesium 2.5 mg/dL (1.6-2.5) 08/26/18 03:36 Assessment and Plan (1) Acute kidney injury Kimmie Pretty is an 82-year-old female with coronary artery disease by dense calcifications on CT, chronic combined systolic and diastolic heart failure (Echo on 08/21/18: LVEF 25%, Grade III diastolic dysfunction), chronic atrial fibrillation on Eliquis anticoagulation, hypertension, dementia, history of TIA, admitted on 08/20/18. Acute kidney injury with NPO status, large NG output, progressive metabolic alkalosis and cumulative I/Os of -5189 ml. There is no recent history of IV contrast administration or NSAID use. Intravascular volume depletion suspected. Acute glomerulonephritis, acute interstitial nephritis, or acute toxic nephropathy due to medications unlikely. Work up: Urinalysis on 08/20/18: Yellow, hazy, pH 6.0, SG 1.017, protein 30, occult blood 0.03, leukocyte esterase 500, urine WBC >182. CT Abdomen and Pelvis without contrast on 08/25/18: Incarcerated periumbilical hernia containing a segment of mid transverse colon. This is causing partial l arge bowel obstruction. Small bowel obstruction. The transition point appears to be deep in the right lower pelvis. This is probably due to an adhesion. Atrophic left kidney containing a complex cyst which may contain blood products. Distended gallbladder but without evidence of gallstones or cholecystitis. Right-sided pleural effusion. Severe atherosclerotic disease. Progress: Urine output: 625 ml reported in the past 24 hours. Serum creatinine increased from 1.8 to 2.5 in the past 24 hours. Metabolic alkalosis. Recommendations/Plan: No acute hemodialysis need. Avoid NSAIDs, nephrotoxic medications and IV contrast. Monitor BMP and urine output. Increased IVF recommended. Status: Acute Priority: Medium
--- NOTE | 2018-08-26 08:49 | XRay Report ---
HISTORY: Distal small bowel obstruction FINDINGS: Patient was given 2 cups of diluted Gastrografin contrast through the indwelling nasogastric tube. Images were acquired at three, five and 14 hours following administration of contrast. Initial images show the stomach is distended with large amount contrast and there is dilatation of the duodenum and proximal jejunum. The five hour image shows partial emptying of the stomach with more contrast now in the proximal and mid jejunum. The 14 hour image shows the stomach has nearly emptied. The contrast is now very dilute and mixed with secretions within the small intestine. There is a dilated loop of ileum laterally in right midabdomen which measures 6.9 cm in diameter and contains no contrast. At the time of the final image, the contrast has become so dilute that additional imaging would be of limited usefulness. IMPRESSION: Complete distal small bowel obstruction. The point of obstruction cannot be identified. Interpreted and Authenticated by: Berto Alvares 08/26/18
[2018-08-26] MEDS: PROMETHAZINE 25 MG/ML VIAL IV PRN (08:57)
[2018-08-26] MEDS: ONDANSETRON 4 MG/2 ML VIAL IV PRN (08:58)
--- NOTE | 2018-08-26 09:45 | Internal Med Progress Note ---
Medical - PN: Subj Patient information: Note initiated : 08/26/18 at 9:40 am Service Date, if different from initiated Date: [] Patient: Kimmie Pretty 82 y/o F admitted on 08/20/18 for SOB for months. Chief Complaint: [] Interval history: Ms. Pretty is a 82 year old F Presents to the ED with progressive shortness of breath, especially with any exertion. She states that she is bad noticeable shortness of breath over the past couple months but especially worse of the past 3 or 4 days. She is also noticed pedal edema more on the right foot the past few days as well. She has a mild chronic cough but no acute worsening. She has been sleeping in a recliner over the past week because of shortness of b reath, positive for orthopnea at night. When she gets up and exerts herself and gets short of breath she does get lightheaded. In the ED she was found to be in A. fib RVR with rates almost 130, she was given diltiazem which brought her heart rate down to the 90s. Chest x-ray revealed pulmonary edema. She had elevated BNP. Denies any chest pain, denies any recent illnesses. Denies any fevers or chills. Does not weigh herself daily. 08/21 Was able to get decent sleep last night. Good urine output overnight. She feels her shortness of breath is improving. Diltiazem drip at 5. She is taken off of supplemental oxygen this morning. Occasional cough. 08/22-patient feeling more short of breath. No concerns per staff with heart rate variable between 80-120. Off diltiazem drip. Echocardiogram EF 25%. Case discussed with patient's son and patient and the need for follow-up with cardi ology. Increase metoprolol to 50 extended release. X-ray chest shows interval resolution of CHF however bibasilar atelectasis/infiltrates likely aspiration. Start ST eval 08/23- patient seen in room along with son. No overnight events. Worsening chest infiltrates. Patient was to return home. Family considering option of palliation/comfort measures in light of poor quality of life. Family will decide in the next 24 hours. Plan will be to go home as per patient's wishes on oral antibiotics. Has remained afebrile. No other concerns expressed the nursing staff 08/24- patient clinically improved. Family at bedside. Extensive family discussion yesterday on goals of care. Patient will likely discharge home likely in 24 hours. Repeat chest imaging shows interval improvement in chest infiltrates. Heart rate control inadequate rate. Increase metoprolol 100 mg. No overnight fever chills. Case management and coordinating discharge plan 08/25-patient complains of significant nausea and abdominal distention,, abdominal imaging reveals small bowel obstruction. Surgery consulted. NG tube decompression ordered. Start crystalloids/NPO. History of hysterectomy in the past but no recent bowel surgeries. Patient appears fatigued and lethargic. Daughter at bedside. Creatinine uptrending now at 1.8 from 1.4. Significant pyuria. Start Zosyn for empiric UTI/bowel obstruction coverage and signs of sepsis 08/26- incarcerated hernia/bowel obstruction on CT. On NG decompression. Surgery on board. On crystalloids and nothing by mouth. Creatinine up to 2.5. Nephrology consulted. Likely secondary to aggressive diuresis/early sepsis. Gentle fluid challenge(in light of low EF), monitor renal function - Constitutional Vitals: Vital Signs Temp Pulse Resp BP Pulse Ox 97.2 F 109 H 18 95/60 97 08/26/18 07:31 08/25/18 08:00 08/26/18 07:31 08/26/18 07:31 08/26/18 07:31 Period Temp Pulse Resp BP Sys/Stuart Pulse Ox Last 24 Hr 97.0 F-98.1 F 18-22 95-139/60-103 80-97 Intake and Output 08/25/18 08/26/18 08/26/18 21:59 05:59 13:59 Intake Total 469 115 631 Output Total 2121 1565 900 Balance -1652 1450 -269 Weight 152 lb 9.6 oz Intake & Output: Intake & Output 08/25/18 08/26/18 08/26/18 21:59 05:59 13:59 Intake Total 469 115 631 Output Total 2121 1565 900 Balance -1652 -1450 -269 Weight 152 lb 9.6 oz Intake: IV 469 115 631 Sodium Chloride 0.9% 1,000 ml @ 419 581 50 mls/hr IV .Q20H PENDING SALE TO [facility] Rx#: [id number] Zosyn 2.25 gm In Dextrose 5% in 50 50 50 Water 50 ml @ 100 mls/hr IV Q6H PENDING SALE TO [facility] Rx#:[id number] Output: Gastric Drainage 1720 1200 900 Right Nare 1720 1200 900 Urine Catheter Amount 275 350 Emesis 126 15 Other: Urine Appearance Clear Clear Urine Color Bright Yellow Light Grecia Urine Odor Normal Stool Size Large Stool Color Brown Stool Consistency Liquid Watery # Emeses 2 General appearance: no acute distress Exam: NG tube in place Foleys draining clear urine Diminished breath sounds bases Abdomen nondistended Intermittently confused Medical - PN: Obj Da - Labs CBC & Chem 7: 08/26/18 03:36 08/26/18 03:36 Labs: Abnormal Lab Results 08/26/18 08/26/18 08/26/18 03:36 03:36 03:36 WBC 4.1 L RDW 17.3 H Band Neutrophils % 24 H Lymphocytes % 12 L WBC Morphology Abnorm A Toxic Granulation Few A Dohle Bodies Few A RBC Morphology Abnorm A Anisocytosis 1+ A PT 16.9 H INR 1.4 H Sodium Chloride 85 L Carbon Dioxide 37 H Anion Gap 17.0 H BUN 58 H Creatinine 2.5 H Glucose 144 H Uric Acid 15.4 H Phosphorus 6.2 H* GGT 57 H Albumin 3.1 L Globulin 4.6 H Albumin/Globulin Ratio 0.7 L 08/25/18 08/25/18 08/24/18 03:52 03:52 08:40 WBC 4.1 L RDW 17.2 H Band Neutrophils % 13 H Lymphocytes % WBC Morphology Toxic Granulation Dohle Bodies RBC Morphology Abnorm A Anisocytosis 1+ A PT INR Sodium 132 L Chloride 92 L 94 L Carbon Dioxide Anion Gap BUN 41 H 33 H Creatinine 1.8 H 1.6 H Glucose 114 H 139 H Uric Acid 12.2 H 10.7 H Phosphorus GGT 52 H 56 H Albumin 2.9 L 3.1 L Globulin 4.1 H 4.4 H Albumin/Globulin Ratio 0.7 L 0.7 L 08/24/18 08:40 WBC RDW 17.6 H Band Neutrophils % Lymphocytes % WBC Morphology Toxic Granulation Dohle Bodies RBC Morphology Abnorm A Anisocytosis 1+ A PT INR Sodium Chloride Carbon Dioxide Anion Gap BUN Creatinine Glucose Uric Acid Phosphorus GGT Albumin Globulin Albumin/Globulin Ratio Meds: Medications Acetaminophen (Tylenol) 650 mg PO Q6HP PRN PRN Reason: PAIN/FEVER > 101 Last Admin: 08/24/18 12:29 Dose: 650 mg Documented by: Hydrocodone Bitart/Acetaminophen ([place] 5/325mg) 1 tab PO Q6HP PRN PRN Reason: PAIN LEVEL 3-6 Last Admin: 08/25/18 10:18 Dose: 1 tab Documented by: Albuterol/Ipratropium (Duoneb) 3 ml NEB Q4HP PRN PRN Reason: Shortness Of Breath Last Admin: 08/24/18 07:42 Dose: 3 ml Documented by: Apixaban (Eliquis) 2.5 mg PO BID PENDING SALE TO [facility] Last Admin: 08/26/18 07:19 Dose: Not Given Documented by: Calcium Carbonate/Glycine (Tums) 1,000 mg CHEWED Q4HP PRN PRN Reason: Dyspepsia Docusate Sodium (Colace) 100 mg PO BID [facility]END[facility] Last Admin: 08/26/18 07:19 Dose: Not Given Documented by: Famotidine (Pepcid) 20 mg PO [facility] Last Admin: 08/25/18 20:36 Dose: Not Given Documented by: Furosemide (Lasix) 40 mg PO DAILY [facility] Last Admin: 08/26/18 07:19 Dose: Not Given Documented by: Hydrochlorothiazide (Oretic) 25 mg PO DAILY [facility] Last Admin: 08/26/18 07:19 Dose: Not Given Documented by: Potassium Chloride 40 meq/ (Dextrose) 520 mls @ 130 mls/hr IV UD PRN PRN Reason: Potassium < 3 Magnesium Sulfate (Magnesium Sulfate) 2 gm in 50 mls @ 50 mls/hr IV UD PRN PRN Reason: Magnesium </= 1.6 Piperacillin Sod/Tazobactam (Sod 2.25 gm/ Dextrose) 50 mls @ 100 mls/hr IV Q6H PENDING SALE TO [facility]; Protocol Last Infusion: 08/26/18 07:20 Dose: Infused Documented by: Acetaminophen (Ofirmev) 650 mg in 65 mls @ 130 mls/hr IV Q6HP PRN PRN Reason: PAIN/FEVER > 101 Last Admin: 08/26/18 09:01 Dose: 130 mls/hr Documented by: Sodium Chloride (Sodium Chloride 0.9%) 1,000 mls @ 75 mls/hr IV .[id number] PENDING SALE TO [facility] Last Admin: 08/26/18 09:30 Dose: 75 mls/hr Documented by: Sodium Chloride (Sodium Chloride 0.9%) 1,000 mls @ 0 mls/hr IV BOLUS PENDING SALE TO [facility] Memantine (Namenda) 10 mg PO BID PEND[facility] Last Admin: 08/26/18 07:19 Dose: Not Given Documented by: Metoclopramide HCl (Reglan) 5 mg IV Q6 [facility]END[facility] Last Admin: 08/26/18 05:43 Dose: 5 mg Documented by: Metoprolol Succinate (Toprol Xl) 100 mg PO DAILY [facility] Last Admin: 08/26/18 07:19 Dose: Not Given Documented by: Metoprolol Tartrate (Lopressor) 5 mg IV Q2HP PRN PRN Reason: Tachyarrhythmias HR>110 Last Admin: 08/26/18 08:57 Dose: 5 mg Documented by: Ondansetron HCl (Zofran) 4 mg IV Q4HP PRN PRN Reason: Nausea And Vomiting Last Admin: 08/26/18 08:58 Dose: 4 mg Documented by: Polyethylene Glycol (Miralax) 17 gm PO DAILYP PRN PRN Reason: Constipation Potassium Chloride (Kdur) 40 meq PO UD PRN PRN Reason: Potssium is 3-3.5 Potassium Chloride (Kdur) 40 meq PO UD PRN PRN Reason: Potassium < 3 Potassium Chloride (Kdur) 20 meq PO BIDCC PENDING SALE TO [facility] Last Admin: 08/26/18 07:18 Dose: Not Given Documented by: Promethazine HCl (Phenergan) 6.25 mg IV Q6HP PRN PRN Reason: Nausea And Vomiting Last Admin: 08/26/18 08:57 Dose: 6.25 mg Documented by: Senna (Senokot) 2 tab PO HSP PRN PRN Reason: Constipation Sodium Chloride (Saline Flush) 10 ml IV Q8 PENDING SALE TO [facility] Last Admin: 08/26/18 05:43 Dose: Not Given Documented by: Medical - PN: A/P - Time Spent With Patient Total time spent is greater than 50% in coordination of care (as documented) at patient's floor/unit and/or counseling patient: 25 - 35 minutes (1) Acute decompensated heart failure Status: Acute Assessment and plan: * Complete distal bowel obstruction on abdominal imaging-NPO/conservative management/NG decompression/surgery on board * Complicated Escherichia coli UTI-continue antibiotic coverage * TAMMIE secondary to sepsis/volume depletion, creatinine 2.5. Nephrology consulted Start crystalloids, hold diuretics. * Sepsis secondary to above * Acute decompensated heart failure systolic with EF 25%- clinically improved however now developed bowel obstruction . diuresis currently held and gentle fluid challenge in light of TAMMIE * A. fib with RVR-continue rate control on beta elizabeth. Anticoagulation on hold * Aspiration pneumonia-radiological resolution noted. Continue ST eval/aspiration precaution. * Hypoxic respiratory failure secondary to combination of above-clinically improved * History of dementia on memantine * Anticoagulation on Apixiban * Full code Plan * NG decompression, surgery following * Nephrology consult * Crystalloids and antiemetics * Antibiotic coverage * CT abdomen * Hold anticoagulation/diuretics * Continue rate control measures Current Visit: Yes Medical - PN: Qual - VTE Deep Vein Thrombosis/Pulmonary Embolism Present on Admission: No
--- NOTE | 2018-08-26 11:10 | General Surgery Progress Note ---
Subjective Narrative: Note initiated : 08/26/18 at 11:07 am Service Date, if different from initiated Date: [] Patient: Kimmie Pretty 82 y/o F admitted on 08/20/18 for SOB for months. Chief Complaint: [] Overnight the patient has had increasing output from the NG tube. Urine output has been low but adequate. Repeated films showed eventual dilution of the contrast under plain films, but repeat CT scan this morning still shows upon my review the films would appears to be a complete obstruction, probably related to this abdominal wall hernia. There may be some involvement in the pelvis also from her prior hysterectomy. At that is unclear. A lengthy discussion with the daughter and son and [id number] along with the patient about the fact that without surgery. She likely will not survive this. Because of her cardiac issues as well as her acute kidney injury, her care now is beyond our capabilities and she needs transfer. Objective Temp Pulse Resp BP Pulse Ox 97.2 F 109 H 18 95/60 97 08/26/18 07:31 08/25/18 08:00 08/26/18 07:31 08/26/18 07:31 08/26/18 07:31 - Additional Data Intake & Output - Last 24 hours: Intake & Output 08/24/18 08/25/18 08/26/18 08/27/18 05:59 05:59 05:59 05:59 Intake Total 400 1160 634 696 Output Total 9082 887 8897 900 Balance -620 550 -3052 -204 Weight 160 lb 11.2 oz 163 lb 12.8 oz 152 lb 9.6 oz - General physical appearance no pain - Neck no venous distension - Respiratory dullness: bilateral, absent breath sounds: right (base) - Cardiovascular Cardiovascular exam: Present: normal rate and rhythm - Abdomen soft, non tender, bowel sounds (present today), distended Hernia: incisional (just to R of umbilicus - full, not tender - not reducible) - Labs 08/26/18 03:36 08/26/18 03:36 Diabetes panel 08/26/18 Range/Units 03:36 Sodium 139 (133-145) mmol/L Potassium 3.7 (3.3-5.1) mmol/L Chloride 85 L (96-108) mmol/L Carbon Dioxide 37 H (22-30) mmol/L BUN 58 H (8-23) mg/dl Creatinine 2.5 H (0.6-1.1) mg/dl Glucose 144 H (70-105) mg/dL Calcium 9.5 (8.6-10.4) mg/dl AST 16 (0-37) U/l ALT 10 (0-40) U/l Alkaline Phosphatase 82 (39-117) U/L Total Protein 7.7 (5.9-8.4) gm/dL Albumin 3.1 L (3.2-5.2) gm/dL Triglycerides 89 (<150) mg/dl Calcium panel 08/26/18 Range/Units 03:36 Calcium 9.5 (8.6-10.4) mg/dl Phosphorus 6.2 H* (2.7-4.5) mg/dL Albumin 3.1 L (3.2-5.2) gm/dL Pituitary panel 08/26/18 Range/Units 03:36 Sodium 139 (133-145) mmol/L Potassium 3.7 (3.3-5.1) mmol/L Chloride 85 L (96-108) mmol/L Carbon Dioxide 37 H (22-30) mmol/L BUN 58 H (8-23) mg/dl Creatinine 2.5 H (0.6-1.1) mg/dl Glucose 144 H (70-105) mg/dL Calcium 9.5 (8.6-10.4) mg/dl Adrenal panel 08/26/18 Range/Units 03:36 Sodium 139 (133-145) mmol/L Potassium 3.7 (3.3-5.1) mmol/L Chloride 85 L (96-108) mmol/L Carbon Dioxide 37 H (22-30) mmol/L BUN 58 H (8-23) mg/dl Creatinine 2.5 H (0.6-1.1) mg/dl Glucose 144 H (70-105) mg/dL Calcium 9.5 (8.6-10.4) mg/dl Total Bilirubin 0.7 (0.0-1.0) mg/dL AST 16 (0-37) U/l ALT 10 (0-40) U/l Alkaline Phosphatase 82 (39-117) U/L Total Protein 7.7 (5.9-8.4) gm/dL Albumin 3.1 L (3.2-5.2) gm/dL - Imaging Abdominal x-ray: report reviewed, image reviewed CT scan - abdomen: image reviewed Assessment and Plan (1) Partial small bowel obstruction Status: Acute Assessment and plan: Had a lengthy discussion this morning with the patient, her daughter, son and [id number]. In my opinion on review the films, she has a complete mechanical small bowel obstruction with this hernia at least partially if not completely involved is the cause, perhaps in the pelvic area. There may be othe r issues. With the CT findings, her exam, even though she is passing some liquid stool. I think she needs operative management. Because of her significant comorbidities with her congestive heart failure, right pleural effusion, ejection fraction of 25%, acute kidney injury with creatinine at 2.5 this morning, her postoperative cares beyond our abilities here. I spoke at length with her and her family and they agreed that they want everything done at this time. With that in mind, were in the process of making arrangements to transfer to [facility]. Current Visit: Yes (2) Congestive heart failure Status: Acute Current Visit: Yes (3) Atrial fibrillation Status: Acute Current Visit: Yes (4) Acute decompensated heart failure Status: Acute Current Visit: Yes - Time Spent With Patient Total time spent is greater than 50% in coordination of care (as documented) at patient's floor/unit and/or counseling patient: Greater than 35 minutes
--- NOTE | 2018-08-26 12:35 | Discharge Summary ---
Medical - DS: Prov Patient information: Note initiated : 08/26/18 at 12:33 pm Service Date, if different from initiated Date: [] Patient: Kimmie Pretty 82 y/o F admitted on 08/20/18 for SOB for months. Chief Complaint: [] Date of admission: 08/20/18 21:18 Discharge date: 08/26/18 Primary care physician: Seun Marsh Consults: 08/20/18 Consult to Physician [CONS] Stat Comment: Consulting Provider: Vlad Dietrich Reason For Exam: Physician to Consult 08/25/18 10:19 Consult to Physician [CONS] Routine Comment: Consulting Provider: Luis Sneed Reason For Exam: Physician to Consult 08/26/18 08:15 Consult to Physician [CONS] Routine Comment: Consulting Provider: Marjorie Vargas Reason For Exam: Physician to Consult Medical - DS: Meds - Discharge Medications Active and Home Medications: Home Medications apixaban 2.5 mg tablet 2.5 mg PO BID tab 06/13/18 [History Confirmed 08/20/18 Last Taken Unknown] losartan 50 mg tablet 50 mg PO QDAY 06/13/18 [History Confirmed 08/20/18 Last Taken Unknown] metoprolol succinate ER 50 mg capsule sprinkle, ext. release 24 hr 25 mg PO QDAY each 06/13/18 [History Confirmed 08/20/18 Last Taken Unknown] potassium chloride ER 20 mEq tablet,extended release 20 meq PO BID 06/13/18 [History Confirmed 08/20/18 Last Taken Unknown] Hydrochlorothiazide [Oretic] 25 mg PO DAILY 08/20/18 [History Confirmed 08/20/18 Last Taken Unknown] Memantine [Namenda] 10 mg PO BID 08/20/18 [History Confirmed 08/20/18 Last Taken Unknown] Medical - DS: Hosp Hospital course: Ms. Pretty is a 82 year old F Presents to the ED with progressive shortness of breath, especially with any exertion. She states that she is bad noticeable shortness of breath over the past couple months but especially worse of the past 3 or 4 days. She is also noticed pedal edema more on the right foot the past few days as well. She has a mild chronic cough but no acute worsening. She has been sleeping in a recliner over the past week because of shortness of breath, positive for orthopnea at night. When she gets up and exerts herself and gets short of breath she does get lightheaded. In the ED she was found to be in A. fib RVR with rates almost 130, she was given diltiazem which brought her heart rate down to the 90s. Chest x-ray revealed pulmonary edema. She had elevated BNP. Denies any chest pain, denies any recent illnesses. Denies any fevers or chills. Does not weigh herself daily. 08/21 Was able to get decent sleep last night. Good urine output overnight. She feels her shortness of breath is improving. Diltiazem drip at 5. She is taken off of supplemental oxygen this morning. Occasional cough. 08/22-patient feeling more short of breath. No concerns per staff with heart rate variable between 80-120. Off diltiazem drip. Echocardiogram EF 25%. Case discussed with patient's son and patient and the need for follow-up with cardiology. Increase metoprolol to 50 extended release. X-ray chest shows interval resolution of CHF however bibasilar atelectasis/infiltrates likely aspiration. Start ST eval 08/23- patient seen in room along with son. No overnight events. Worsening chest infiltrates. Patient was to return home. Family considering option of palliation/comfort measures in light of poor quality of life. Family will decide in the next 24 hours. Plan will be to go home as per patient's wishes on oral antibiotics. Has remained afebrile. No other concerns expressed the nursing staff 08/24- patient clinically improved. Family at bedside. Extensive family discussion yesterday on goals of care. Patient will likely discharge home likely in 24 hours. Repeat chest imaging shows interval improvement in chest infiltrates. Heart rate control inadequate rate. Increase metoprolol 100 mg. No overnight fever chills. Case management and coordinating discharge plan 08/25-patient complains of significant nausea and abdominal distention,, abdominal imaging reveals small bowel obstruction. Surgery consulted. NG tube decompression ordered. Start crystalloids/NPO. History of hysterectomy in the past but no recent bowel surgeries. Patient appears fatigued and lethargic. Daughter at bedside. Creatinine uptrending now at 1.8 from 1.4. Significant pyuria. Start Zosyn for empiric UTI/bowel obstruction coverage and signs of sepsis 08/26- incarcerated hernia/bowel obstruction on CT. On NG decompression. Surgery on board. On crystalloids and nothing by mouth. Creatinine up to 2.5. Nephrology consulted. Likely secondary to aggressive diuresis/early sepsis. Gentle fluid challenge(in light of low EF), monitor renal function I have not seen this patient. Patient is transferring to [place] today, everything has already been arranged except for the discharge summary. Summary notes from Dr. Richardson's notes. Discharge diagnosis: Bowel obstruction A. fib RVR CHF - Time Spent with Patient Total time spent providing and/or coordinating discharge services: Greater than 30 minutes Medical - DS: Exam - Constitutional Vitals: Vital Signs Temp Resp BP Pulse Ox 08/26/18 07:31 97.2 F 18 95/60 97 08/26/18 04:00 98.1 F 95 08/26/18 03:29 113/68 96 08/26/18 02:26 136/103 96 08/26/18 02:00 90 08/26/18 01:00 80 L 08/26/18 00:59 113/78 08/26/18 00:28 113/78 97 08/26/18 00:00 97.7 F 18 113/76 96 08/25/18 22:56 124/72 92 08/25/18 20:00 97.0 F 22 124/86 97 08/25/18 16:00 98.0 F 19 139/99 95 08/25/18 12:42 98.1 F 22 115/75 96 Intake and Output 08/25/18 08/26/18 08/26/18 21:59 05:59 13:59 Intake Total 469 115 696 Output Total 2121 1565 900 Balance -3952 -2420 -204 Intake: IV 469 115 696 Sodium Chloride 0.9% 1,000 ml @ 419 581 50 mls/hr IV .Q20H [facility] Rx#: [id number] Zosyn 2.25 gm In Dextrose 5% in 50 50 50 Water 50 ml @ 100 mls/hr IV Q6H [facility] Rx#:[id number] Output: Gastric Drainage 1720 1200 900 Right Nare 1720 1200 900 Urine Catheter Amount 275 350 Emesis 126 15 Other: Urine Appearance Clear Clear Urine Color Bright Yellow Light Grecia Urine Odor Normal Stool Size Large Stool Color Brown Stool Consistency Liquid Watery # Emeses 2 Weight 69.218 kg Medical - DS: Data Labs on day of discharge: Labs from last 24 hours 08/26/18 08/26/18 08/26/18 03:36 03:36 03:36 WBC 4.1 L RBC 4.21 Hgb 13.4 Hct 41.5 MCV 98.4 MCH 31.7 MCHC 32.2 RDW 17.3 H Plt Count 210 MPV 8.8 Total Counted 100 Seg Neutrophils % 55 Band Neutrophils % 24 H Lymphocytes % 12 L Monocytes % (Manual) 9 WBC Morphology Abnorm A Toxic Granulation Few A Dohle Bodies Few A Platelet Estimate Normal RBC Morphology Abnorm A Anisocytosis 1+ A PT 16.9 H INR 1.4 H Sodium 139 Potassium 3.7 Chloride 85 L Carbon Dioxide 37 H Anion Gap 17.0 H BUN 58 H Creatinine 2.5 H GFR Calculation 18 Glucose 144 H Uric Acid 15.4 H Calcium 9.5 Phosphorus 6.2 H* Magnesium 2.5 Total Bilirubin 0.7 Direct Bilirubin 0.3 GGT 57 H AST 16 ALT 10 Alkaline Phosphatase 82 Lactate Dehydrogenase 209 Total Protein 7.7 Albumin 3.1 L Globulin 4.6 H Albumin/Globulin Ratio 0.7 L Triglycerides 89 Medical - DS: A/P - Patient/Caregiver Discharge Instructions Activity: as per physical therapy Diet: NPO - Follow up Plan Follow up with: Seun Marsh DO [Primary Care Provider] - Pierre Yanez MD [Physician] - 08/31/18 2:30 pm (Check in at 2:30, please bring you insurance card to your appointment.) Prognosis: Good Medical - DS: Qual - VTE Deep Vein Thrombosis/Pulmonary Embolism Present on Admission: No
--- NOTE | 2018-08-26 12:37 | Transfer Summary ---
Transfer Discharge Sum: Prov Patient information: Note initiated : 08/26/18 at 12:36 pm Service Date, if different from initiated Date: [] Patient: Kimmie Pretty 82 y/o F admitted on 08/20/18 for SOB for months. Chief Complaint: [] Date of admission: 08/20/18 21:18 Discharge Date: 08/26/18 Primary care physician: Seun Marsh Consults: 08/20/18 Consult to Physician [CONS] Stat Comment: Consulting Provider: Vlad Dietrich Reason For Exam: Physician to Consult 08/25/18 10:19 Consult to Physician [CONS] Routine Comment: Consulting Provider: Luis Sneed Reason For Exam: Physician to Consult 08/26/18 08:15 Consult to Physician [CONS] Routine Comment: Consulting Provider: Marjorie Vargas Reason For Exam: Physician to Consult Transfer Discharge Sum: Med - Medications Active and Home Medications: Home Medications apixaban 2.5 mg tablet 2.5 mg PO BID tab 06/13/18 [History Confirmed 08/20/18] losartan 50 mg tablet 50 mg PO QDAY 06/13/18 [History Confirmed 08/20/18] metoprolol succinate ER 50 mg capsule sprinkle, ext. release 24 hr 25 mg PO QDAY each 06/13/18 [History Confirmed 08/20/18] potassium chloride ER 20 mEq tablet,extended release 20 meq PO BID 06/13/18 [History Confirmed 08/20/18] Hydrochlorothiazide [Oretic] 25 mg PO DAILY 08/20/18 [History Confirmed 08/20/18] Memantine [Namenda] 10 mg PO BID 08/20/18 [History Confirmed 08/20/18] Active Medications Acetaminophen (Tylenol) 650 mg PO Q6HP PRN PRN Reason: PAIN/FEVER > 101 Last Admin: 08/24/18 12:29 Dose: 650 mg Documented by: Hydrocodone Bitart/Acetaminophen ([place] 5/325mg) 1 tab PO Q6HP PRN PRN Reason: PAIN LEVEL 3-6 Last Admin: 08/25/18 10:18 Dose: 1 tab Documented by: Albuterol/Ipratropium (Duoneb) 3 ml NEB Q4HP PRN PRN Reason: Shortness Of Breath Last Admin: 08/24/18 07:42 Dose: 3 ml Documented by: Apixaban (Eliquis) 2.5 mg PO BID [facility] Last Admin: 08/26/18 07:19 Dose: Not Given Documented by: Calcium Carbonate/Glycine (Tums) 1,000 mg CHEWED Q4HP PRN PRN Reason: Dyspepsia Docusate Sodium (Colace) 100 mg PO BID [facility] Last Admin: 08/26/18 07:19 Dose: Not Given Documented by: Famotidine (Pepcid) 20 mg PO HS [facility] Last Admin: 08/25/18 20:36 Dose: Not Given Documented by: Furosemide (Lasix) 40 mg PO DAILY [facility] Last Admin: 08/26/18 07:19 Dose: Not Given Documented by: Hydrochlorothiazide (Oretic) 25 mg PO DAILY [facility] Last Admin: 08/26/18 07:19 Dose: Not Given Documented by: Potassium Chloride 40 meq/ (Dextrose) 520 mls @ 130 mls/hr IV UD PRN PRN Reason: Potassium < 3 Magnesium Sulfate (Magnesium Sulfate) 2 gm in 50 mls @ 50 mls/hr IV UD PRN PRN Reason: Magnesium </= 1.6 Piperacillin Sod/Tazobactam (Sod 2.25 gm/ Dextrose) 50 mls @ 100 mls/hr IV Q6H [facility]; Protocol Last Admin: 08/26/18 11:38 Dose: 100 mls/hr Documented by: Acetaminophen (Ofirmev) 650 mg in 65 mls @ 130 mls/hr IV Q6HP PRN PRN Reason: PAIN/FEVER > 101 Last Infusion: 08/26/18 10:11 Dose: Infused Documented by: Sodium Chloride (Sodium Chloride 0.9%) 1,000 mls @ 75 mls/hr IV .[id number] [facility] Last Admin: 08/26/18 09:30 Dose: 75 mls/hr Documented by: Sodium Chloride (Sodium Chloride 0.9%) 1,000 mls @ 0 mls/hr IV BOLUS [facility] Last Admin: 08/26/18 08:15 Dose: 500 mls/hr Documented by: Memantine (Namenda) 10 mg PO BID [facility] Last Admin: 08/26/18 07:19 Dose: Not Given Documented by: Metoclopramide HCl (Reglan) 5 mg IV Q6 [facility] Last Admin: 08/26/18 11:40 Dose: 5 mg Documented by: Metoprolol Succinate (Toprol Xl) 100 mg PO DAILY [facility] Last Admin: 08/26/18 07:19 Dose: Not Given Documented by: Metoprolol Tartrate (Lopressor) 5 mg IV Q2HP PRN PRN Reason: Tachyarrhythmias HR>110 Last Admin: 08/26/18 08:57 Dose: 5 mg Documented by: Ondansetron HCl (Zofran) 4 mg IV Q4HP PRN PRN Reason: Nausea And Vomiting Last Admin: 08/26/18 08:58 Dose: 4 mg Documented by: Polyethylene Glycol (Miralax) 17 gm PO DAILYP PRN PRN Reason: Constipation Potassium Chloride (Kdur) 40 meq PO UD PRN PRN Reason: Potssium is 3-3.5 Potassium Chloride (Kdur) 40 meq PO UD PRN PRN Reason: Potassium < 3 Potassium Chloride (Kdur) 20 meq PO BIDCC [facility] Last Admin: 08/26/18 07:18 Dose: Not Given Documented by: Promethazine HCl (Phenergan) 6.25 mg IV Q6HP PRN PRN Reason: Nausea And Vomiting Last Admin: 08/26/18 08:57 Dose: 6.25 mg Documented by: Senna (Senokot) 2 tab PO HSP PRN PRN Reason: Constipation Sodium Chloride (Saline Flush) 10 ml IV Q8 [facility] Last Admin: 08/26/18 05:43 Dose: Not Given Documented by: Transfer Discharge Sum: Hosp Hospital course: Ms. Pretty is a 82 year old F Ms. Pretty is a 82 year old F Presents to the ED with progressive shortness of breath, especially with any exertion. She states that she is bad noticeable shortness of breath over the past couple months but especially worse of the past 3 or 4 days. She is also noticed pedal edema more on the right foot the past few days as well. She has a mild chronic cough but no acute worsening. She has been sleeping in a recliner over the past week because of shortness of breath, positive for orthopnea at night. When she gets up and exerts herself and gets short of breath she does get lightheaded. In the ED she was found to be in A. fib RVR with rates almost 130, she was given diltiazem which brought her heart rate down to the 90s. Chest x-ray revealed pulmonary edema. She had elevated BNP. Denies any chest pain, denies any recent illnesses. Denies any fevers or chills. Does not weigh herself daily. 08/21 Was able to get decent sleep last night. Good urine output overnight. She feels her shortness of breath is improving. Diltiazem drip at 5. She is taken off of supplemental oxygen this morning. Occasional cough. 08/22-patient feeling more short of breath. No concerns per staff with heart rate variable between 80-120. Off diltiazem drip. Echocardiogram EF 25%. Case discussed with patient's son and patient and the need for follow-up with cardiology. Increase metoprolol to 50 extended release. X-ray chest shows interval resolution of CHF however bibasilar atelectasis/infiltrates likely aspiration. Start ST eval 08/23- patient seen in room along with son. No overnight events. Worsening chest infiltrates. Patient was to return home. Family considering option of palliation/comfort measures in light of poor quality of life. Family will decide in the next 24 hours. Plan will be to go home as per patient's wishes on oral antibiotics. Has remained afebrile. No other concerns expressed the nursing staff 08/24- patient clinically improved. Family at bedside. Extensive family discussion yesterday on goals of care. Patient will likely discharge home likely in 24 hours. Repeat chest imaging shows interval improvement in chest infiltrates. Heart rate control inadequate rate. Increase metoprolol 100 mg. No overnight fever chills. Case management and coordinating discharge plan 08/25-patient complains of significant nausea and abdominal distention,, abdominal imaging reveals small bowel obstruction. Surgery consulted. NG tube decompression ordered. Start crystalloids/NPO. History of hysterectomy in the past but no recent bowel surgeries. Patient appears fatigued and lethargic. Daughter at bedside. Creatinine uptrending now at 1.8 from 1.4. Significant pyuria. Start Zosyn for empiric UTI/bowel obstruction coverage and signs of sepsis 08/26- incarcerated hernia/bowel obstruction on CT. On NG decompression. Surgery on board. On crystalloids and nothing by mouth. Creatinine up to 2.5. Nephrology consulted. Likely secondary to aggressive diuresis/early sepsis. Gentle fluid challenge(in light of low EF), monitor renal function I have not seen this patient. Patient is transferring to [place] today, everything has already been arranged except for the discharge summary. Summary notes from Dr. Richardson's notes. - Time Spent with Patient Total time spent providing and/or coordinating transfer services: Greater than 30 minutes Transfer Discharge Sum: Exam - Constitutional Vitals: Vital Signs Temp Resp BP Pulse Ox 08/26/18 07:31 97.2 F 18 95/60 97 08/26/18 04:00 98.1 F 95 08/26/18 03:29 113/68 96 08/26/18 02:26 136/103 96 08/26/18 02:00 90 08/26/18 01:00 80 L 08/26/18 00:59 113/78 08/26/18 00:28 113/78 97 08/26/18 00:00 97.7 F 18 113/76 96 08/25/18 22:56 124/72 92 08/25/18 20:00 97.0 F 22 124/86 97 08/25/18 16:00 98.0 F 19 139/99 95 08/25/18 12:42 98.1 F 22 115/75 96 Intake and Output 08/25/18 08/26/18 08/26/18 21:59 05:59 13:59 Intake Total 469 115 696 Output Total 2121 1565 900 Balance -1652 -1450 -204 Intake: IV 469 115 696 Sodium Chloride 0.9% 1,000 ml @ 419 581 50 mls/hr IV .Q20H [facility] Rx#: [id number] Zosyn 2.25 gm In Dextrose 5% in 50 50 50 Water 50 ml @ 100 mls/hr IV Q6H [facility] Rx#:[id number] Output: Gastric Drainage 1720 1200 900 Right Nare 1720 1200 900 Urine Catheter Amount 275 350 Emesis 126 15 Other: Urine Appearance Clear Clear Urine Color Bright Yellow Light Grecia Urine Odor Normal Stool Size Large Stool Color Brown Stool Consistency Liquid Watery # Emeses 2 Weight 69.218 kg Transfer Discharge Sum: Data Procedures and tests throughout hospitalization: Pending Orders 08/20/18 Consult to Physician [CONS] Stat 08/20/18 20:13 leon [Urinary catheterization ED] NOW 08/20/18 20:48 Resuscitation Status Routine 08/20/18 21:21 Admit as Inpatient Routine Ambulate-Progressive TID Anti-Embolism Devices DAILY monitoring coordinator CONT Condition Routine Elevate head of bed .ROUTINE IV Insertion/Management QSHIFT Intake and Output Notify Provider .routine Up to chair PRN Weight Monitoring QHS RD to Adjust Diet/Supplements as Needed Routine Occupational Therapy Eval & Tx DAILY Physical Therapy Eval & Tx QD-BID Incentive Spirometry Assess/Tx Q1HWA Nebulizer management .Routine Pulse Oximetry .ROUTINE 08/22/18 10:03 Speech Therapy Eval & Treat .Routine 08/23/18 15:06 Acetaminophen [Tylenol] 650 mg PO Q6HP PRN HYDROcodone/APAP 5/325MG [[place] 5/325Mg] 1 tab PO Q6HP PRN Ipratropium/Albuterol [Duoneb] 3 ml NEB Q4HP PRN Magnesium Sulfate 2 gm in 50 ml IV UD Metoprolol Tartrate [Lopressor] 5 mg IV Q2HP PRN Ondansetron [Zofran] 4 mg IV Q4HP PRN Polyethylene Glycol 3350 [Miralax] 17 gm PO DAILYP PRN Potassium Chloride 40 meq Dextrose 5% in Water 500 ml IV UD Potassium Chloride [Kdur] 40 meq PO UD PRN Potassium Chloride [Kdur] 40 meq PO UD PRN Sennosides [Senokot] 2 tab PO HSP PRN 08/23/18 17:30 Potassium Chloride [Kdur] 20 meq PO BIDCC 08/23/18 21:00 Apixaban [Eliquis] 2.5 mg PO BID Docusate Sodium [Colace] 100 mg PO BID Famotidine [Pepcid] 20 mg PO HS Memantine [Namenda] 10 mg PO BID 08/23/18 22:00 0.9 % Sodium Chloride [Saline Flush] 10 ml IV Q8 08/24/18 09:00 Furosemide [Lasix] 40 mg PO DAILY Hydrochlorothiazide [Oretic] 25 mg PO DAILY Metoprolol Succinate [Toprol Xl] 100 mg PO DAILY 08/24/18 16:12 Calcium Carbonate [Tums] 1,000 mg CHEWED Q4HP PRN 08/25/18 10:12 GI Tube Management QSHIFT 08/25/18 10:19 Consult to Physician [CONS] Routine NPO Diet (NOW) 08/25/18 10:36 Acetaminophen [Ofirmev] 650 mg in 65 ml IV Q6HP 08/25/18 11:00 Piperacillin Sodium/Tazobactam [Zosyn] 2.25 gm Dextrose 5% in Water 50 ml IV Q6H 08/25/18 12:02 Communication order ONCE 08/25/18 18:37 Promethazine [Phenergan] 6.25 mg IV Q6HP PRN 08/25/18 18:45 0.9 % Sodium Chloride [Sodium Chloride 0.9%] 1,000 ml IV 75 mls/hr 08/26/18 00:00 Metoclopramide [Reglan] 5 mg IV Q6 08/26/18 08:15 Consult to Physician [CONS] Routine 0.9 % Sodium Chloride [Sodium Chloride 0.9%] 1,000 ml IV BOLUS 08/26/18 08:25 XR chest 1V portable Stat 08/26/18 09:19 CT abdomen pelvis wo con Urgent 08/27/18 04:00 Complete Blood Count Man Dif DAILY Inpatient Panel DAILY 08/28/18 04:00 Complete Blood Count Man Dif DAILY Inpatient Panel DAILY Transfer Discharge Sum: A/P - Plan Overall status at transfer: patient is not back to baseline Disposition: Xfer [facility] Quality Measure Queries - VTE Deep Vein Thrombosis/Pulmonary Embolism Present on Admission: No
--- NOTE | 2018-08-26 13:15 | Cat Scan Report ---
CLINICAL INFORMATION: Follow-up small bowel obstruction COMPARISON: 08/25/18 TECHNIQUE: The abdomen was imaged without oral or IV contrast, scanning from the diaphragm to the symphysis pubis. The patient has received oral Gastrografin contrast yesterday. Sagittal and coronal reformats were created. Radiation exposure was limited using dose reduction technology. FINDINGS: There is a small right-sided pleural effusion which has diminished in volume since 08/25/18. There are bands of atelectasis in both lung bases. The heart remains mildly enlarged. There are couple small calcified granulomata in the liver. The gallbladder is less distended today. There are no stones in the gallbladder and bile ducts are nondilated. There is nasogastric tube in the stomach. There is some residual gastric gastric duodenum and jejunum. There are several loops of dilated jejunum with air-fluid levels. They measure up to 4.7 cm in diameter. There is a gradual transition in mildly dilated proximal ileum to normal caliber mid ileum in the left upper pelvis. This is seen on axial images 117 through 129 and on the coronal images #40 through 44. The wall of the small intestine at this level does not appear to be thickened or inflamed and there is no evidence of an intraventricular extrinsic mass. Small amount of contrast is passed through the terminal ileum into the cecum and ascending colon. The ascending colon is elongated and there is a loss of normal mucosal folds. Patient appears to have a mobile cecum which is folded anteriorly. A sending colon is not abnormally dilated. The mid transverse colon is trapped in a periumbilical hernia. A small amount contrast within the trapped transverse colon. A trace amount of contrast passed distal to the hernia. Is no evidence of adenopathy mass or ascites within the abdomen or pelvis. The urinary bladder is decompressed by Fuentes catheter. There is a catheter in the rectum. Remainder of the abdomen remains stable from 08/25/18. IMPRESSION: Partial distal small bowel obstruction in the general location of the proximal ileum, located in the left upper pelvis. This is probably due to an adhesion. Incarcerated transverse colon in a periumbilical hernia. This is causing low-grade large bowel obstruction. Interpreted and Authenticated by: Berto Alvares 08/26/18
--- NOTE | 2018-08-26 13:29 | XRay Report ---
HISTORY: Sudden onset dyspnea FINDINGS: There is an ill-defined alveolar opacity in the right lung base which has improved since 08/24/18. This appeared to be atelectasis on the preceding CT scan. A horizontally oriented band of scar tissue or discoid atelectasis is seen in the left lower lobe. Mid and upper lung ricardo are clear. Small subpulmonic pleural effusion is present on the right side which was better seen on the preceding abdomen CT. The heart is mildly enlarged but there is no congestive heart failure. Nasogastric tube passes through the esophagus into the stomach. The aorta is tortuous and has calcified plaques along the wall. IMPRESSION: Improving aeration in the right lower lobe with bibasilar atelectasis and possible scar tissue. Stable cardiomegaly, without congestive heart failure Interpreted and Authenticated by: Berto Alvares 08/26/18
== END 2018-08-26 15:15 | disposition short-term general hospital (02) | DRG 291 ==
LOC: ED 17:41 → ICU 21:18
PROVIDERS: ADMIT Internal Medicine; ATTEND Internal Medicine